=== PATIENT | male | born 2005 | race Caucasian/White ===

== ENCOUNTER 2025-02-02 09:54 | Emergency (ER) | payer BC, SELFPAY ==
--- NOTE | ~2025-02-02 | XR_ITS ---
EXAMINATION: XR HAND 1-2 VIEWS RIGHT, XR WRIST 1-2 VIEWS RIGHT HISTORY: dorsal tenderness laterally COMPARISON: There are no prior studies available for comparison. FINDINGS: Six views of the right hand and wrist are submitted. Osseous mineralization is normal. There is no fracture or dislocation. The joint spaces are preserved. The soft tissues are unremarkable. XR/XR wrist RT 2V IMPRESSION: Unremarkable examination of the right hand and wrist. Electronically signed by: Michael Nelson MD 02/02/2025 10:22 AM EDT
--- NOTE | ~2025-02-02 | XR_ITS ---
EXAMINATION: XR HAND 1-2 VIEWS RIGHT, XR WRIST 1-2 VIEWS RIGHT HISTORY: dorsal tenderness laterally COMPARISON: There are no prior studies available for comparison. FINDINGS: Six views of the right hand and wrist are submitted. Osseous mineralization is normal. There is no fracture or dislocation. The joint spaces are preserved. The soft tissues are unremarkable. XR/XR hand RT 2V IMPRESSION: Unremarkable examination of the right hand and wrist. Electronically signed by: Michael Nelson MD 02/02/2025 10:22 AM EDT
[2025-02-02 09:56] VITALS: BP 133/81; PULSE 84; RESP 16; TEMP 36.1; O2SAT 100; BMI 21.7
--- NOTE | 2025-02-02 09:56 | ED.GENADULT ---
HPI - General Adult General Chief complaint: Extremity Injury, Upper Stated complaint: quest r wrist dislocated hit door Time Seen by Provider: 02/02/25 10:53 Source: patient and old records reviewed Mode of arrival: ambulatory Limitations: no limitations History of Present Illness ED Provider: BLANE MARSHALL narrative: 19 yo male with no PMH and he is R hand dominant he slammed his R lateral hand on a stall wall last night - he then went to urgent care this AM had xrays they referred him to ED with ?dislocation. He notes he has severe pain from hand to elbow and cannot make a fist. No numbness reported. MD complaint: R hand injury Onset (ago): day(s) (1) Location: right and upper extremity Radiation: extremity Severity: severe Quality: aching Pain Consistency: constant Relieving factors: immobilization Exacerbating factors: movement Associated symptoms: denies other symptoms Treatments prior to arrival: none Related Data Previous Rx's ?Medication ?Instructions ?Recorded cyclobenzaprine 10 mg tablet 10 mg PO TID PRN muscle spasm #20 02/02/25 tabs ibuprofen 600 mg tablet 600 mg PO Q6H PRN pain #30 tabs 02/02/25 Allergies Allergy/AdvReac Type Severity Reaction Status Date / Time nut - unspecified Allergy Anaphylaxis Verified 02/02/25 09:57 peanut Allergy Anaphylaxis Verified 02/02/25 09:57 Review of Systems Review of Systems: Constitutional : No Fever, No Chills ENT/Mouth : No Ear Pain, No Hoarseness, No sore throat Eyes: No Eye Pain, No Swelling, No Redness, No Foreign Body Cardiovascular : No Chest Pain, No SOB Respiratory : No Cough, No Dyspnea Gastrointestinal : No Nausea, No Vomiting, No Diarrhea, No abdominal Pain Genitourinary : No Dysuria, No Hematuria Musculoskeletal : positive joint pain, No Myalgias, pos Joint Swelling Skin : No Skin lacerations, No rash Neuro : pos Weakness, No Numbness, No Loss of Consciousness, No Dizziness, No Headache All other systems reviewed and are negative [facility] Past Medical History Attestation statement: The following information was validated with the patient. Medical History No pertinent past medical history Social History Social History (Updated 02/02/25 @ 12:00 by Rose Aranda DO) Patient Tobacco Use Status: Never used Tobacco Physical Exam ED Vital Signs: Vital Signs - 24 hr 02/02/25 09:56 Temperature 97 F Pulse Rate 84 Respiratory Rate 16 Blood Pressure 133/81 Pulse Oximetry 100 Oxygen Delivery Method Room Air BMI result Body Mass Index 21.7 Appearance: Alert. Oriented X3. No acute distress. Eyes: Pupils equal, round and reactive to light. ENT: Pharynx normal. Neck: Normal inspection. Neck supple. CVS: Normal heart rate and rhythm. Pulses normal. Respiratory: No respiratory distress. Breath sounds normal. Abdomen: Soft and nontender. Skin: Skin warm and dry. Normal skin color. Normal skin turgor. Extremities: No lower extremity edema. R hand swelling on dorsum and palmar over carpal bone sensation, BCR in digits, sensation intact, hand warm, 2+ radial pulse, hand is held in a slightly flexed position. He has sig pain over the carpal tunnel area Neuro: Oriented X 3. No motor deficit. No sensory deficit. CN2-12 intact Course Course Course Narrative: This is a rapid medical exam performed by Everett Cardozo NP: Additional HPI, ROS, PE not included below will be deferred to primary provider. 02/02/25 09:57 Patient is a 19-year-old right hand dominant male presenting from with complaint of right hand and wrist pain and weakness after punching a bathroom stall last night. No obvious fx on xrays there. Plan: will need to repeat imaging Medications Administered Discontinued Medications Generic Name Dose Route Start Last Admin Trade Name Freq PRN Reason Stop Dose Admin Ibuprofen 600 mg 02/02/25 11:19 02/02/25 11:28 Ibuprofen 600 Mg Tablet PO 02/02/25 11:20 600 mg ONCE ONE Administration Prednisone 20 mg 02/02/25 11:19 02/02/25 11:28 Prednisone 20 Mg Tablet PO 02/02/25 11:20 20 mg ONCE ONE Administration Procedures Orthopedic Splinting/Casting Injury #1: Side: right Upper Extremity Injury Location: hand Upper Extremity Immobilizer: thumb spica Additional Comments: NV intact after Medical Decision Making Medical Decision Making MDM Narrative: 19 yo male with no PMH and he is R hand dominant who presents with concern for acute carpal tunnel injury due to swelling and hand strike - he has pulses and sensation intact. At this time xrays ordered, will consult orthopedics, start on pain control, one time dose of PO prednisone. Orthopedics concerned as well for scaphoid injury will hold further steroids and place in thumb spica with outpatient follow up Differential Diagnosis Differential Diagnoses: The differential diagnosis associated with the presentation includes sprain, strain, carpal tunnel acute, fracture Admission/Observation Consideration of admission/observation: Escalation of care including admission/observation considered ortho states can follow up as outpatient Consult Healthcare Provider Management of the patient was discussed with: Early Childhood Education Worker (Mainor MONTEZ ortho thumb spica and follow up next week ) Independent Interpretation I performed an independent interpretation of an: Plain X-Ray (no obvious trauma) Radiology Impression Discussion of test interpretation with radiology: I have reviewed the radiologist's reading. Prescription Management I considered prescription management with: Pain Medication and Other Discharge Plan Discharge Clinical Impression: Sprain and strain of wrist, Acute carpal tunnel syndrome Patient Disposition: Home, Self-Care Instructions: Wrist Sprain (ED) Additional Instructions: wear splint until released, keep elevated follow up with orthopedics return for cold, blue hand, numbness or any other concerns. Prescriptions: New cyclobenzaprine 10 mg tablet 10 mg PO TID PRN (Reason: muscle spasm) Qty: 20 0RF ibuprofen 600 mg tablet 600 mg PO Q6H PRN (Reason: pain) Qty: 30 0RF Referrals: [facility] [Provider Group] (call to schedule appointment next week) Stand Alone Forms: Work/School Release Print Language: Macedonian
--- NOTE | 2025-02-02 10:22 | PC.NURSE ---
Pt reporting he hit a wall with his right forarm last night at his baseball game, swelling noted to forearm and upper right wrist. Pt has +CMS, has not taken any medications at home. Pt denied any ice at this time. Awaiting xray and provider at this time. Call wade within reach
[2025-02-02] MEDS: Ibuprofen 600 MG TABLET PO (11:28)
[2025-02-02] MEDS: predniSONE 20 MG TABLET PO (11:28)
--- OUTSIDE RECORDS SUMMARY | 2025-02-02 11:52 | XMS_ITS | Encounter Summary ---
Author Organization [facility] Address [address] [place] [address] Care Team Providers Care Bean Weigher Name Role Phone Wilbur Daley MD Primary Care Provider [phone] Encounter Details Date Type Department Care Team (Late st Contact Info) Description 09/23/2019 Community Orders [facility] EpicCare Link [address] [place] [address] Wilbur Daley MD [address] [place] [address] [place] [phone] Chris-Schlatter's disease of both knees (Primary Dx) Social History Tobacco Use Types Packs/Day Years Used Date Smoking Tobacco: Never Smokeless Tobacco: Never Sex and Gender Information Value Date Recorded Sex Assigned at Male 02/21/2022 8:23 AM EDT Legal Sex Male 8:42 AM EDT Gender Identity Male 02/21/2022 8:23 AM EDT Sexual Orientation Straight 02/21/2022 8: 23 AM EDT documented as of this encounter Plan of Treatment Not on file documented as of this encounter Visit Diagnoses Diagnosis Coy-Schlatter's disease of both knees- Primary documented in this encounter Additional Health Concerns Infection Onset Date Last Indicated Resolved Time Multidrug resistant organisms MRSA 08/02/20172016 COVID-19 - Suspected infection 08/24/2020 08/24/2020 08/24/2020 8:37 PM EDT COVID-19 - Suspected infection 01/28/2021 01/29/2021 01/31/2021 4:22 PM EDT COVID-19 - Suspected infection 10/29/2021 10/29/2021 10/30/2021 6:43 AM EST R/O Respiratory Virus Infection 12/02/2021 12/03/2021 5:56 AM EST R/O Influenza 12/02/2021 12/02/2021 12/03/2021 5:5 6 AM EST COVID-19 - Suspected infection 12/02/2021 12/02/2021 12/03/2021 5:56 AM EST documented as of this encounter Care Teams Bean Weigher Relationship Specialty Start Date End Date Wilbur Daley MD [address] [place] [id number] PCP - General 05/21/17 documented as of this encounter
--- OUTSIDE RECORDS SUMMARY | 2025-02-02 11:52 | XMS_ITS | Encounter Summary ---
Author Organization [facility] Address [address] [place] [address] Care Team Providers Care Technician Telecommunication Systems Name Role Phone Wilbur Daley MD Primary Care Provider [phone] Encounter Details Date Type Department Care Team (Late st Contact Info) Description 12/02/2021 Community Orders [facility] EpicCare Link [address] [place] [address] Wilbur Daley MD [address] [facility] [address] [place] [phone] Fever and chills (Primary Dx) Social History Tobacco Use Types [...] on file documented as of this encounter Results * Due to [place] state law, this organization might not be sharing negative HIV tests. * COVID-19, Flu A/B & RSV RNA PCR, Symptomatic (12/02/2021 3:12 PM EST) SARS CoV 2 RNA, RT PCR Not Detected Not Detected ETHEL MELA ZAVALETA 12/03/2021 5:56 AM EST [facility] Comment:A Not Detected (Nega tive) test result is indicative of the absence of SARS-CoV-2 RNA at the level of LoD (Limit of Detection). A negative result does not rule out the possibility of COVID-19 and should not be used as the sole basis for treatment or patient management decisions. If COVID-19 is still suspected, based on exposure history together with other clinical findings, re-testing should be considered. Flu A/B RNA, RT PCR Not Detected Not Detected [employer] 12/03/2021 5:56 AM EST [facility] Comment:Negative results do not preclude infection and should not be used as the sole basis for diagnosis, treatment or other patient management decisions. Negative results must be combined with clinical observations, patient history, and/or epidemiological information. RSV RNA, RT PCR Not Detected Not Detected [employer] 12/03/2021 5:56 AM EST [facility] Comment:Negative results do not preclude infection and should not be used as the sole basis for diagnosis, treatment or other patient management decisions. Negative results must be combined with clinical observations, patient history, and/or epidemiological information. Saliva Mouth region structure / Unknown Non-Blood Collection / Unknown 12/02/2021 3:12 PM EST 12/02/2021 5:03 PM EST [facility] - 12/03/2021 5:56 AM EST These tests were developed, validated, and their performance characteristics determined by the Molecular Virology Laboratory at [facility] under CLIA [id number]. They have not been cleared or approved by the U.S. Food and Drug Administration (FDA). FDA Policy for Diagnostic Tests for Coronavirus Disease-2019 during the Public Health Emergency issued January 16, 2020, is followed. us Wilbur Daley MD LAB BODY FLUIDS AND STOOLS OR DERABLES Final Result [facility] [address] [place] [address], documented in this encounter Visit Diagnoses Diagnosis Fever and chills- Primary Fever, unspecified documented in this encounter Additional Health Concerns Infection Onset Date Last Indicated Resolved Time Multidrug resistant organisms MRSA 08/02/20172016 R/O Respiratory Virus Infection 12/02/2021 12/03/2021 5:56 AM EST R/O Influenza 12/02/2021 12/02/2021 12/03/2021 5:5 6 AM EST COVID-19 - Suspected infection 12/02/2021 12/02/2021 12/03/2021 5:56 AM EST documented as of this encounter Care Teams Technician Telecommunication Systems Relationship Specialty Start Date End Date Wilbur Daley MD [address] [place] [phone] PCP - General 05/21/17 documented as of this encounter
--- OUTSIDE RECORDS SUMMARY | 2025-02-02 11:52 | XMS_ITS | Clinical Summary ---
Author Organization [facility] Address [address] [place] [address] Care Team Providers Care Registered Nurse Nursery Name Role Phone Wilbur Daley MD Primary Care Provider [phone] Allergies Active Allergy Reactions Criticality Noted Date Comments Animal Dander Nasal congestion Garlic Rash 12/12/2017 Nut - Unspecified Anaphylaxis High Peanut Anaphylaxis High Medications albuterol (PROAIR HFA,VENTOLIN HFA) 90 mcg inhaler Inhale by mouth. Use with spacer. Active EPINEPHrine (EPIPEN) 0.3 mg/0.3 mL injection syringe SMARTSIG:IM As Directed 11/09/2021 Active EPINEPHrine (EPIPEN) 0.3 mg/0.3 mL injection syringe Inject 1 Syringe (0.3 mg total) into the outer thigh muscle as directed as needed for anaphylaxis. 1 each 09/27/2023 Active Active Problems Problem Noted Date Diagnosed Date Sprain of ulnar collateral ligament of right elb ow 06/22/2024 Closed fracture of tuft of distal phalanx of fin jose 02/24/2022 Infrequent urination 08/09/2015 Infrequent bowel movements 08/09/2015 Meatal stenosis 08/09/2015 Methicillin resistant Staphylococcus aureus infe ction 06/17/2011 Overview (07/21/2017): FIRST (+) MRSA CULTURE 06/13/11 IN WOUND SEE ANNOTATIONS FOR CLEARING PROTOCOL Umbilical hernia 09/09/2009 Inguinal hernia 09/09/2009 Asthma 09/09/2009 Family History Medical History Relation Name Comments Other Brother Family History of asthma Other Sister Family History of asthma Relation Name Status Comments Brother Sister Social History Tobacco Use Types Packs/Day Years Used Date Smoking Tobacco: Never Smokeless Tobacco: Never Sex and Gender Information Value Date Recorded Sex Assigned at Male 02/21/2022 8:23 AM EDT Legal Sex Male 8:42 AM EDT Gender Identity Male 02/21/2022 8:23 AM EDT Sexual Orientation Straight 02/21/2022 8: 23 AM EDT Last Filed Vital Signs Vital Sign Reading Time Taken Comments Blood Pressure 128/60 09/27/2023 1:45 AM EST Pulse 67 09/27/2023 1:45 AM EST Temperature 37.3 ??C (99.1 ??F) 09/26/2023 10:[address] Respiratory Rate 17 09/27/2023 1:45 AM EST Oxygen Saturation 96% 09/27/2023 1:45 AM EST Inhaled Oxygen Concentration - - Weight 77.1 kg (170 lb) 09/26/2023 10:19 PM EST Height 185.4 cm (6' 1 ) 03/14/2023 7:30 PM EDT Body Mass Index 22.43 03/14/2023 7:30 PM EDT Plan of Treatment Health Maintenance Due Date Last Done Comments HIV Screening 2004 Hepatitis C Screening 2004 1 Week [facility] 2004 1 Month [facility] 2004 2 Month [facility] 2004 4 Month [facility] 2004 6 Month [facility] 2004 9 Month [facility] 02/03/2005 MMR Vaccines (1 of 1 - Stand roseanne series) 2005 12 Month [facility] 05/16/2005 15 Month [facility] 08/02/2005 18 Month [facility] 10/31/2005 24 Month [facility] 04/29/2006 30 Month [facility] 09/02/2006 3 to 21 Year [facility] 2007 Well Child Check 2007 DTaP,Tdap,and Td Vaccines (2 - Td or Tdap) 02/26/2016 01/29/2016 Varicella Vaccines (1 of 2 - 13+ 2-dose series) 2017 Hepatitis B Vaccines (1 of 3 - 19+ 3-dose series) 2023 Pneumococcal Vaccine: Pediat michael (0-5 Years) and At-Risk Patients (6-50 Years) (1 of 2 - PCV) 2023 COVID-19 Vaccine (4 - 2023-2 5 season) 2024 05/19/2022, 06/30/2021, 06/09/2021 Depression Screening and Follow-Up 11/02/2024 Social Drivers of Health Mona ual Screening 11/02/2024 Influenza Vaccine (Season Ended) 2025 09/13/2021, 08/03/2020, 09/09/2019, Additional history exists RSV Vaccine (60+ years old a nd patients) (1 - 1-dose 75+ series) 2079 HPV Vaccines Completed 02/02/2018, 01/29/2017 Meningococcal Vaccine Completed 08/03/2020, 016 Additional Health Concerns Infection Onset Date Last Indicated Multidrug resistant organisms MRSA 08/02/2017 08/02/2017 Insurance [facility] HMO/POS [facility] HMO/POS [facility] Care Teams Registered Nurse Nursery Relationship Specialty Start Date End Date Wilbur Daley MD [address] [place] [phone] PCP - General 05/21/17
--- OUTSIDE RECORDS SUMMARY | 2025-02-02 11:52 | XMS_ITS | Encounter Summary ---
Author Organization [facility] Address [address] [place] [address] Care Team Providers Care Assistant Editor Name Role Phone Wilbur Daley MD Primary Care Provider [phone] Encounter Details Date Type Department Care Team (Late st Contact Info) Description 02/12/2022 Community Orders [facility] EpicCare Link [address] [place] [address] Wilbur Daley MD [address] [place] [address] Fracture, finger, multiple sites (Primary Dx) Social History Tobacco Use Types [...] as of this encounter Visit Diagnoses Diagnosis Fracture, finger, multiple sites- Primary Closed fracture of multiple sites of phalanx or phalanges of hand documented in this encounter Additional Health Concerns Infection Onset Date Last Indicated Resolved Time Multidrug resistant organisms MRSA 08/02/20172016 documented as of this encounter Care Teams Assistant Editor Relationship Specialty Start Date End Date Wilbur Daley MD [address] [address] PCP - General 05/21/17 documented as of this encounter
--- OUTSIDE RECORDS SUMMARY | 2025-02-02 11:52 | XMS_ITS | Encounter Summary ---
Author Organization [facility] Address [address] [place] [address] Care Team Providers Care Pellet Mill Operator Name Role Phone Wilbur Daley MD Primary Care Provider Encounter Details Date Type Department Care Team (Late st Contact Info) Description 05/06/2024 Community Orders [facility] EpicCare Link [address] [place] [address] Wilbur Daley MD [address] [place] [phone] Chronic right shoulder pain (Primary Dx) Social History Tobacco Use Types [...] as of this encounter Visit Diagnoses Diagnosis Chronic right shoulder pain- Primary Pain in joint, shoulder region documented in this encounter Additional Health Concerns Infection Onset Date Last Indicated Resolved Time Multidrug resistant organisms MRSA 08/02/20172016 documented as of this encounter Care Teams Pellet Mill Operator Relationship Specialty Start Date End Date Wilbur Daley MD [address] [place] [address] PCP - General 05/21/17 documented as of this encounter
--- OUTSIDE RECORDS SUMMARY | 2025-02-02 11:52 | XMS_ITS | Encounter Summary ---
Author Organization [facility] Address [address] [place] [address] Care Team Providers Care Dermatology Specialist Name Role Phone Wilbur Daley MD Primary Care Provider Encounter Details Date Type Department Care Team (Late st Contact Info) Description 01/28/2021 Community Orders [facility] EpicCare Link [address] [place] [address] Wilbur Daley MD [address] [facility] [address] [place] [phone] Exposure to SARS virus (Primary Dx) Social History Tobacco Use Types [...] of this encounter Results * Due to [place] state law, this organization might not be sharing negative HIV tests. * COVID-19 PCR, REPORTING DEVELOPER/OP/Saliva (01/31/2021 8:44 AM EDT) SARS CoV 2 RNA, RT PCR Not Detected Not Detected [employer] 01/31/2021 4:22 PM EDT [facility] Comment:A Not [...] other clinical findings, re-testing should be considered. Saliva Mouth region structure / Unknown Non-Blood Collection / Unknown 01/31/2021 8:44 AM EDT 01/31/2021 9:28 AM EDT Narrative [facility] - 01/31/2021 4:22 PM EDT These tests were developed, validated, and their performance characteristics determined by the Molecular Virology Laboratory at [facility] under CLIA [id number]. They have not been cleared or approved by the U.S. Food and Drug Administration (FDA). FDA Policy for Diagnostic Tests for Coronavirus Disease-2019 during the Public Health Emergency issued January 16, 2020, is followed. Wilbur Daley MD LAB BODY FLUIDS AND STOOLS OR DERABLES Final Result [facility] [employer] [facility] [address] [place] [address], documented in this encounter Visit Diagnoses Diagnosis Exposure to SARS virus- Primary Exposure to SARS-associated coronavirus documented in this encounter Additional Health Concerns Infection Onset Date Last Indicated Resolved Time Multidrug resistant organisms MRSA 08/02/20172016 COVID-19 - Suspected infection 01/28/2021 01/29/2021 01/31/2021 4:22 PM EDT COVID-19 - Suspected infection 10/29/2021 10/29/2021 10/30/2021 6:43 AM EST R/O Respiratory Virus Infection 12/02/2021 12/03/2021 5:56 AM EST R/O Influenza 12/02/2021 12/02/2021 12/03/2021 5:5 6 AM EST COVID-19 - Suspected infection 12/02/2021 12/02/2021 12/03/2021 5:56 AM EST documented as of this encounter Care Teams Dermatology Specialist Relationship Specialty Start Date End Date Wilbur Daley MD [address] [place] [address] PCP - General 05/21/17 documented as of this encounter
--- OUTSIDE RECORDS SUMMARY | 2025-02-02 11:52 | XMS_ITS | Referral Summary ---
Author Organization [facility] Address [address] [place] [address] Care Team Providers Care Sales Representative Cash Registers Name Role Phone Wilbur Daley MD Primary Care Provider [phone] Allergies Active Allergy Reactions Criticality Noted Date [...] hernia 09/09/2009 Inguinal hernia 09/09/2009 Asthma 09/09/2009 Social History Tobacco Use Types Packs/Day Years [...] 03/14/2023 7:30 PM EDT Plan of Treatment Not on file Additional Health Concerns Infection Onset Date Last Indicated Multidrug resistant organisms MRSA 08/02/2017 08/02/2017 Insurance [facility] H[facility]/POS [facility]/POS [facility] Care Teams Sales Representative Cash Registers Relationship Specialty Start Date End Date Wilbur Daley MD [address] [place] [address] [place] [phone] PCP - General 05/21/17
--- OUTSIDE RECORDS SUMMARY | 2025-02-02 11:52 | XMS_ITS | Encounter Summary ---
Author Organization [facility] Address [address] [place] [address] Care Team Providers Care Head Of Sales And Marketing Name Role Phone Wilbur Daley MD Primary Care Provider [phone] Encounter Details Date Type Department Care Team (Late st Contact Info) Description 10/29/2021 Community Orders [facility] EpicCare Link [address] [place] [address] Wilbur Daley MD 299 [facility] [address] [place] [address] Close exposure to COVID-19 virus (Primary Dx) Social History Tobacco Use [...] of this encounter Results * Due to [place] state law, this organization might not be sharing negative HIV tests. * COVID-19 PCR (Symptomatic), POWER CHECKER/OP/Saliva (10/29/2021 10:29 AM EST) SARS CoV 2 RNA, RT PCR Not Detected Not Detected [facility] QUANT STUDIO 10/30/2021 6:43 AM EST [email or web address] Comment:A Not Detected (Nega [...] structure / Unknown Non-Blood Collection / Unknown 10/29/2021 10:29 AM EST 10/29/2021 12:21 PM EST [facility]ative [facility] - 10/30/2021 6:43 AM EST These tests were developed, validated, and their performance characteristics determined by the Molecular Virology Laboratory at [facility] under CLIA [id number]. They have not been cleared or approved by the U.S. Food and Drug Administration (FDA). FDA Policy for Diagnostic Tests for Coronavirus Disease-2019 during the Public Health Emergency issued January 16, 2020, is followed. Wilbur Daley MD LAB BODY FLUIDS AND STOOLS OR DERABLES Final Result [facility] [address] [place] [address], documented in this encounter Visit Diagnoses Diagnosis Close exposure to COVID-19 virus- Primary documented in this encounter Additional Health Concerns Infection Onset Date Last Indicated Resolved Time Multidrug resistant organisms MRSA 08/02/20172016 COVID-19 - Suspected infection 10/29/2021 10/29/2021 10/30/2021 6:43 AM EST R/O Respiratory Virus Infection 12/02/2021 12/03/2021 5:56 AM EST R/O Influenza 12/02/2021 12/02/2021 12/03/2021 5:5 6 AM EST COVID-19 - Suspected infection 12/02/2021 12/02/2021 12/03/2021 5:56 AM EST documented as of this encounter Care Teams Head Of Sales And Marketing Relationship Specialty Start Date End Date Wilbur Daley MD [address] [place], [place] [id number] PCP - General 05/21/17 documented as of this encounter
--- OUTSIDE RECORDS SUMMARY | 2025-02-02 11:52 | XMS_ITS | Encounter Summary ---
Author Organization [facility] Address [address] [place] [address] Care Team Providers Care Interstate Planner Name Role Phone Wilbur Daley MD Primary Care Provider [phone] Encounter Details Date Type Department Care Team (Late st Contact Info) Description 08/24/2020 Orders Only [facility] [address] [place] [address] Wilbur Daley MD 299 [facility] [address] [place] [address] Exposure to SARS-associated coronavirus (Primary Dx) Social History Tobacco Use Types [...] of this encounter Results * Due to [place] state law, this organization might not be sharing negative HIV tests. * COVID-19 PCR, SIX PACK PACKER/OP/Saliva (08/24/2020 11:38 AM EDT) SARS CoV 2 RNA, RT PCR Not Detected Not Detected 08/24/2020 8:37 PM EDT [facility] Comment:A Not Detected (Nega tive) test result [...] structure / Unknown Non-Blood Collection / Unknown 08/24/2020 11:38 AM EDT 08/24/2020 12:38 PM EDT Narrative [facility] - 08/24/2020 8:37 PM EDT These tests were developed, validated, and their performance characteristics determined by the Molecular Virology Laboratory at [facility] under CLIA [id number]. They have not been cleared or approved by the U.S. Food and Drug Administration (FDA). FDA Policy for Diagnostic Tests for Coronavirus Disease-2019 during the Public Health Emergency issued January 16, 2020, is followed. us Wilbur Daley MD LAB BODY FLUIDS AND STOOLS OR DERABLES Final Result [facility] [address] [place] [address], documented in this encounter Visit Diagnoses Diagnosis Exposure to SARS-associated coronavirus- Primary documented in this encounter Additional Health [...] documented as of this encounter Care Teams Interstate Planner Relationship Specialty Start Date End Date Wilbur Daley MD [address] [place] [address] PCP - General 05/21/17 documented as of this encounter
--- OUTSIDE RECORDS SUMMARY | 2025-02-02 11:52 | XMS_ITS | Clinical Summary ---
Author Organization [facility] Address [address] [place] [address] Care Team Providers Care Bran Mixer Name Role Phone Juan Luis Daley MD Primary Care Provider [phone] Allergies Active Allergy Reactions Criticality Noted Date Comments Nuts 07/31/2013 Medications Fluticasone Propionate HFA (FLOVENT HFA) 110 MCG/ACT Aerosol None Entered Active Active Problems No known active problems Immunizations Name Administration Dates Next Due COVID-19, mRNA (Pfizer Pre F all 2022) Monovalent, 30 mcg/0.3 ml 06/30/2021,06/09/2021 Covid-19, mRNA (Pfizer Pre F all 2022) Monovalent, 30 mcg/0.3 ml ade-sucrose (12+) 05/19/2022 HPV9 (Gardasil 9) 02/02/2018,01/29/2017 Hep A (pedi) 02/02/2018,01/29/2017 Influenza,injectable,quad,Prsrv Fr 09/13,08/03/2020,09/09/2019,08/26,12/07/2017,09/13/2015 Meningococcal ACWY (Menactra) 08/03/2020, 016 Tdap 01/29/2016 Social History Tobacco Use Types Packs/Day Years Used Date Smoking Tobacco: Never Assessed Intimate Partner Violence Answer Date R ecorded Fear of Current or Ex-Partner Not on file Emotionally Abused Not on file 06/23/2023 Physically Abused Not on file 06/23/2023 Sexually Abused Not on file 06/23/2023 Feel Safe at Home Not on file 06/23/2023 Sex and Gender Information Value Date Recorded Sex Assigned at Not on file Legal Sex Male 8:42 PM EDT Gender Identity Not on file Sexual Orientation Not on file Last Filed Vital Signs Vital Sign Reading Time Taken Comments Blood Pressure 108/61 07/31/2013 3:23 PM EDT Pulse 78 02/11/2022 3:45 PM EDT Temperature 36.4 ??C (97.6 ??F) 02/11/2022 3:45 PM ED T Respiratory Rate 20 02/11/2022 3:45 PM EDT Oxygen Saturation 98% 02/11/2022 3:45 PM EDT Inhaled Oxygen Concentration - - Weight 72.2 kg (159 lb 3.2 oz) 02/11/2022 3:45 P M EDT Height 137.2 cm (4' 6 ) 07/31/2013 3:23 PM EDT Body Mass Index - - Plan of Treatment Health Maintenance Due Date Last Done Comments Hepatitis C Screening 2004 MMR (1 of 1 - Standard series) 2005 Varicella (1 of 2 - 13+ 2-dose series) 2017 Hep B (1 of 3 - 19+ 3-dose series) 2023 COVID-19 Vaccine ( season) 2024 05/19/2022, 06/30/2021, 06/09/2021 Influenza (#1) 2024 09/13/2021, 1012/2019, 09/09/2019, Additional history exists DTaP/Tdap/Td (2 - Td or Tdap) 01/28/2026 01/29/2016 Zoster (Shingrix) (1 of 2) 2054 HPV Vaccine Completed 02/02/2018, 01/29/2017 Hep A Completed 02/02/2018, 01/29/2017 Meningococcal ACWY Completed 08/03/2020, 01/29/2016 Hib Aged Out No longer eligi ble based on patient's age to complete this topic Pneumococcal Aged Out No longer eligi ble based on patient's age to complete this topic Polio (IPV/OPV) Aged Out No longer el igible based on patient's age to complete this topic Insurance MEDICAID [facility] FEE FOR SERVICE HMO Care Teams Bran Mixer Relationship Specialty Start Date End Date Juan Luis Daley MD JUAN LUIS DALEY, [address] [address] PCP - General Pediatrics 02/11/22
--- NOTE | 2025-02-02 12:02 | PC.NURSE ---
MD and ortho at bedside, awaiting dispo plan at this time/ decision on splitting options
[2025-02-02 12:26] VITALS: BP 133/81; PULSE 84; RESP 16; TEMP 36.1; O2SAT 100
== END 2025-02-02 12:26 | disposition home or self-care (01) ==
PROVIDERS: Emergency Provider Emergency Medicine
DX: S63.501A Unspecified sprain of right wrist, initial encounter (principal); S66.911A Strain of unspecified muscle, fascia and tendon at wrist and hand level, right hand, initial encounter; W22.09XA Striking against other stationary object, initial encounter; G56.01 Carpal tunnel syndrome, right upper limb; M79.641 Pain in right hand; Y93.89 Activity, other specified; Y92.89 Other specified places as the place of occurrence of the external cause; Y99.9 Unspecified external cause status
CPT/HCPCS: 29125; 73100; 73120; 99283; 99284

== ENCOUNTER → 2025-02-02 10:03 | Outpatient (BNV) | payer BC, SELFPAY | PROVIDERS: Emergency Provider Emergency Medicine; Visit Provider Radiology Diagnostic Radiology | DX: M25.531 Pain in right wrist (principal); M79.641 Pain in right hand | CPT/HCPCS: 73100; 73120 ==

== ENCOUNTER 2025-02-14 07:56 | Outpatient (AMB) | payer BC, SELFPAY ==
--- NOTE | 2025-02-14 08:00 | A.OFFVIS_ITS ---
Vital Signs 02/14/25 08:04 Height 6 ft 1 in Weight 170 lb BMI 22.4 Handedness Right Intake Visit Reasons: ED f/u-Rt wrist sprain and strain of wrist Intake Note: Neil is a 19 year old right hand dominant male who presents today for a new patient visit for an emergency department follow up for his right wrist injury, DOI: 02/01/25. Per ED note patient states he slammed the lateral side of his right hand into a wall. [facility] ED placed patient into a splint. Patient reports his entire right hand feels as if it is asleep at all times. Expresses constant throbbing pain. Tylenol or ibuprofen does not offer adequate relief. Allergies nut - unspecified Allergy (Verified 02/14/25 08:04) Anaphylaxis peanut Allergy (Verified 02/14/25 08:04) Anaphylaxis HPI HPI ED f/u-Rt wrist sprain and strain of wrist: Details: Neil is a 19 year old right hand dominant male who presents today for a new patient visit for an emergency department follow up for his right wrist injury, DOI: 02/01/25. Per ED note patient states he slammed the lateral side of his right hand into a wall. [facility] ED placed patient into a splint. Patient reports his entire right hand feels as if it is asleep at all times. Expresses constant throbbing pain. Tylenol or ibuprofen does not offer adequate relief. Patient reports he is still experiencing intermittent ?sleepiness? in the right hand. [facility] Medical History No pertinent past medical history Social History (Updated 02/14/25 @ 08:05 by CLARA Pressley) Alcohol intake: current Alcohol intake frequency: a few times a month Patient Tobacco Use Status: Never used Tobacco Substance Use Type: Marijuana Current occupational status: student Current occupation: sports - baseball Review of Systems Const All systems reviewed & are unremarkable except as noted in HPI and below Physical Exam Vital Signs: BMI result Body Mass Index 22.4 Extrem Other: Patient is alert, oriented, and in no acute distress. Neuro: Normal sensation of the tips of all digits of the right hand at this time Vascular: Cap refill brisk Pain: No tenderness to palpation of anatomical snuffbox of right wrist today [id number] tenderness to palpation of the scaphoid tubercle of the right wrist Mild tenderness to palpation about the dorsal and ulnar aspect of the right hand just distal to the ulnar styloid Some discomfort in this area with range of motion ROM: Patient was able to make a closed fist and extend all digits of the right hand fully Skin: No lacerations or abrasions. General: No ecchymosis, erythema, or evidence of infection. Psych: Appears grossly normal Affect normal Attitude cooperative Results Reviewed Results Reviewed: X-rays obtained in the office today and independently reviewed by me, Aristides Hayward PA-C, demonstrate no fracture or acute bony abnormality of the right hand or wrist. Assessment & Plan Assessment & Plan (1) Sprain and strain of wrist: Code(s): S63.509A - Unspecified sprain of unspecified wrist, initial encounter; S66.919A - Strain of unspecified muscle, fascia and tendon at wrist and hand level, unspecified hand, initial encounter Category: Medical Plan 1. Right wrist contusion with tenderness to scaphoid tubercle Date of injury 02/01/2025 At this time, due to patient's symptoms concerning for potential occult scaphoid fracture, patient was placed into a Velcro thumb spica splint to be worn like a cast except for bathing until follow-up Patient was also advised that if numbness and tingling continue at next visit, we will likely order an EMG and nerve conduction study to rule out carpal tunnel syndrome Patient is educated on proper splint care and precautions 2 lb weight limit until follow-up No baseball Follow-up in 2 weeks Orders: Orders XR wrist RT w scaphoid Today M79.641 - Pain in right hand Coding Level of Care Code New Pt Level 3 (81514) Diagnoses Sprain and strain of wrist S63.509A; S66.919A
--- OUTSIDE RECORDS SUMMARY | 2025-02-14 08:00 | XMS_ITS | Clinical Summary ---
Author Organization [facility] Address [address] [place] [address] Care Team Providers Care Tree Chipper Name Role Phone Juan Luis Eduardo MD Primary Care Provider [phone] Allergies Active Allergy Reactions Criticality Noted Date [...] age to complete this topic Insurance MEDICAID [facility] FEE FOR SERVICE HMO Care Teams Tree Chipper Relationship Specialty Start Date End Date Juan Luis Eduardo MD JUAN LUIS EDUARDO, [address] [address] PCP - General Pediatrics 02/11/22
--- OUTSIDE RECORDS SUMMARY | 2025-02-14 08:00 | XMS_ITS | Referral Summary ---
Author Organization [facility] Address [address] [place] [address] Care Team Providers Care Set Up Operator Tool Name Role Phone Wilbur Daley MD Primary Care Provider [phone] Allergies Active Allergy Reactions Criticality Noted Date [...] Multidrug resistant organisms MRSA 08/02/2017 08/02/2017 Insurance [facility] HMO/POS [facility] H[facility]/POS [facility] Care Teams Set Up Operator Tool Relationship Specialty Start Date End Date Wilbur Daley MD [address] [place] [address] [place] [address] PCP - General 05/21/17
--- OUTSIDE RECORDS SUMMARY | 2025-02-14 08:00 | XMS_ITS | Encounter Summary ---
Author Organization [facility] Address [address] [place] [address] Care Team Providers Care Substance Abuse Rn Name Role Phone Wilbur Daley MD Primary Care Provider [phone] Encounter Details Date Type Department Care Team (Late st Contact Info) Description 10/29/2021 Community Orders [facility] EpicCare Link [address] [place] [address] Wilbur Daley MD 299 [facility] [address] [place] [phone] Close exposure to COVID-19 virus (Primary Dx) [...] of this encounter Results * Due to [place] state law, this organization might not be sharing negative HIV tests. * COVID-19 PCR (Symptomatic), AVIONICS MANAGER/OP/Saliva (10/29/2021 10:29 AM EST) SARS CoV 2 RNA, RT PCR Not Detected Not Detected [facility] QUANT STUDIO 10/30/2021 6:43 AM EST [facility] Comment:A Not Detected (Nega [...] AM EST 10/29/2021 12:21 PM EST Narrative [facility] - 10/30/2021 6:43 AM EST These tests were developed, validated, and their performance characteristics determined by the Molecular Virology Laboratory at [facility] under CLIA [id number]. They have not been cleared or approved by the U.S. Food and Drug Administration (FDA). FDA Policy for Diagnostic Tests for Coronavirus Disease-2019 during the Public Health Emergency issued January 16, 2020, is followed. Wilbur Daley MD LAB BODY FLUIDS AND STOOLS OR DERABLES Final Result [facility] [address] [place] [address], documented in this encounter Visit Diagnoses Diagnosis [...] documented as of this encounter Care Teams Substance Abuse Rn Relationship Specialty Start Date End Date Wilbur Daley MD [address] [place], [place] [phone] PCP - General 05/21/17 documented as of this encounter
--- OUTSIDE RECORDS SUMMARY | 2025-02-14 08:00 | XMS_ITS | Clinical Summary ---
Author Organization [facility] Address [address] [place] [address] Care Team Providers Care Bookkeeping Service Sales Agent Name Role Phone Wilbur Daley MD Primary Care Provider [phone] Allergies Active Allergy Reactions Criticality Noted Date [...] 2004 Hepatitis C Screening 2004 1 Week [facility] 2004 1 Month [facility] 2004 2 Month [facility] 2004 4 Month [facility] 2004 6 Month [facility] 2004 9 Month [facility] 02/03/2005 MMR Vaccines (1 of 1 - Stand roseanne series) 2005 12 Month [facility] 05/16/2005 15 Month [facility] 08/02/2005 18 Month [facility] 10/31/2005 24 Month [facility] 04/29/2006 30 Month [facility] 09/02/2006 3 to 21 Year [facility] 2007 Well Child Check 2007 DTaP,Tdap,and Td [...] Multidrug resistant organisms MRSA 08/02/2017 08/02/2017 Insurance [facility] HMO/POS [facility] Care Teams Bookkeeping Service Sales Agent Relationship Specialty Start Date End Date Wilbur Daley MD [address] [place] [address] PCP - General 05/21/17
--- OUTSIDE RECORDS SUMMARY | 2025-02-14 08:00 | XMS_ITS | Encounter Summary ---
Author Organization [facility] Address [address] [place] [address] Care Team Providers Care Bowl Topper Name Role Phone Wilbur Daley MD Primary Care Provider [phone] Encounter Details Date Type Department Care Team (Late st Contact Info) Description 09/23/2019 Community Orders [facility] EpicCare Link [address] [place] [address] Wilbur aDley MD [address] [place] [address] [place] [address] Chris-Schlatter's disease of both knees (Primary Dx) [...] as of this encounter Visit Diagnoses Diagnosis Swengel-Schlatter's disease of both knees- Primary documented in [...] documented as of this encounter Care Teams Bowl Topper Relationship Specialty Start Date End Date Wilbur Daley MD [address] [place] [address] PCP - General 05/21/17 documented as of this encounter
--- OUTSIDE RECORDS SUMMARY | 2025-02-14 08:00 | XMS_ITS | Encounter Summary ---
Author Organization [facility] Address [address] [place] [address] Care Team Providers Care Radiologic Technician Name Role Phone Wilbur Daley MD Primary Care Provider Encounter Details Date Type Department Care Team (Late st Contact Info) Description 02/12/2022 Community Orders [facility] EpicCare Link [address] [place] [address] Wilbur Daley MD [address] [place] [address] Fracture, finger, multiple sites (Primary Dx) Social [...] documented as of this encounter Care Teams Radiologic Technician Relationship Specialty Start Date End Date Wilbur Daley MD [address] [address] PCP - General 05/21/17 documented as of this encounter
--- OUTSIDE RECORDS SUMMARY | 2025-02-14 08:00 | XMS_ITS | Encounter Summary ---
Author Organization [facility] Address [address] [place] [address] Care Team Providers Care Leadite Worker Name Role Phone Wilbur Daley MD Primary Care Provider [phone] Encounter Details Date Type Department Care Team (Late st Contact Info) Description 12/02/2021 Community Orders [facility] EpicCare Link [address] [place] [address] Wilbur Daley MD 299 [facility] [address] [place] [address] Fever and chills (Primary Dx) Social History [...] of this encounter Results * Due to [place] state law, this organization might not be sharing negative HIV tests. * COVID-19, Flu A/B & RSV RNA PCR, Symptomatic (12/02/2021 3:12 PM EST) SARS CoV 2 RNA, RT PCR Not Detected Not Detected ETHEL MELA ZAVALETA 12/03/2021 5:56 AM EST [facility] CL[facility]ICAL [facility]OLOGY LABORATORY Comment:A Not [...] RNA, RT PCR Not Detected Not Detected [facility] 12/03/2021 5:56 AM EST [facility] Comment:Negative results do not preclude infection and should not be used as the sole basis for diagnosis, treatment or other patient management decisions. Negative results must be combined with clinical observations, patient history, and/or epidemiological information. RSV RNA, RT PCR Not Detected Not Detected [employer] [facility] 12/03/2021 5:56 AM EST [facility] Comment:Negative results do not preclude infection and should not be used as the sole basis for diagnosis, treatment or other patient management decisions. Negative results must be combined with clinical observations, patient history, and/or epidemiological information. Saliva Mouth region structure / Unknown Non-Blood Collection / Unknown 12/02/2021 3:12 PM EST 12/02/2021 5:03 PM EST [facility] - 12/03/2021 5:56 AM EST These tests were developed, validated, and their performance characteristics determined by the Molecular Virology Laboratory at [facility] under CLIA [id number]. They have not been cleared or approved by the U.S. Food and Drug Administration (FDA). FDA Policy for Diagnostic Tests for Coronavirus Disease-2019 during the Public Health Emergency issued January 16, 2020, is followed. us Wilbur Daley MD LAB BODY FLUIDS AND STOOLS OR DERABLES Final Result [facility] [address] [place] [address], documented in this encounter Visit Diagnoses Diagnosis [...] documented as of this encounter Care Teams Leadite Worker Relationship Specialty Start Date End Date Wilbur Daley MD [address] [place] [address] PCP - General 05/21/17 documented as of this encounter
--- OUTSIDE RECORDS SUMMARY | 2025-02-14 08:00 | XMS_ITS | Encounter Summary ---
Author Organization [facility] Address [address] [place] [address] Care Team Providers Care Financing Analyst Name Role Phone Wilbur Daley MD Primary Care Provider Encounter Details Date Type Department Care Team (Late st Contact Info) Description 05/06/2024 Community Orders [facility] EpicCare Link [address] [place] [address] Wilbur Daley MD [address] [place] [address] Chronic right shoulder pain (Primary Dx) Social [...] documented as of this encounter Care Teams Financing Analyst Relationship Specialty Start Date End Date Wilbur Daley MD [address] [place] [address] PCP - General 05/21/17 documented as of this encounter
--- OUTSIDE RECORDS SUMMARY | 2025-02-14 08:00 | XMS_ITS | Encounter Summary ---
Author Organization [facility] Address [address] [place] [address] Care Team Providers Care Office Asst Name Role Phone Wilbur Daley MD Primary Care Provider [phone] Encounter Details Date Type Department Care Team (Late st Contact Info) Description 08/24/2020 Orders Only [facility] [address] [place] [address] Wilbur Daley MD [address] [facility] [employer] [address] [place] [address] Exposure to SARS-associated coronavirus (Primary Dx) Social [...] of this encounter Results * Due to [place] state law, this organization might not be sharing negative HIV tests. * COVID-19 PCR, ABLE BODIED TANKERMAN/OP/Saliva (08/24/2020 11:38 AM EDT) SARS CoV 2 RNA, RT PCR Not Detected Not Detected 08/24/2020 8:37 PM EDT [facility] Comment:A Not Detected [...] AM EDT 08/24/2020 12:38 PM EDT Narrative [facility] - 08/24/2020 8:37 PM EDT These tests were developed, validated, and their performance characteristics determined by the Molecular Virology Laboratory at [facility] under CLIA [id number]. They have not been cleared or approved by the U.S. Food and Drug Administration (FDA). FDA Policy for Diagnostic Tests for Coronavirus Disease-2019 during the Public Health Emergency issued January 16, 2020, is followed. us Wilbur Daley MD LAB BODY FLUIDS AND STOOLS OR DERABLES Final Result [facility] [address] [place] [address], documented in this encounter Visit Diagnoses Diagnosis [...] documented as of this encounter Care Teams Office Asst Relationship Specialty Start Date End Date Wilbur Daley MD [address] [place] [address] PCP - General 05/21/17 documented as of this encounter
--- OUTSIDE RECORDS SUMMARY | 2025-02-14 08:00 | XMS_ITS | Encounter Summary ---
Author Organization [facility] Address [address] [place] [address] Care Team Providers Care Passenger Rate Clerk Name Role Phone Wilbur Daley MD Primary Care Provider [phone] Encounter Details Date Type Department Care Team (Late st Contact Info) Description 01/28/2021 Community Orders [facility] EpicCare Link [address] [place] [address] Wilbur Daley MD 299 [facility] [address] [place] [phone] Exposure to SARS virus (Primary Dx) Social [...] of this encounter Results * Due to [place] state law, this organization might not be sharing negative HIV tests. * COVID-19 PCR, SNOW REMOVING SUPERVISOR/OP/Saliva (01/31/2021 8:44 AM EDT) SARS CoV 2 RNA, RT PCR Not Detected Not Detected BANG BANDA STUDIO 01/31/2021 4:22 PM EDT [facility] Comment:A Not [...] AM EDT 01/31/2021 9:28 AM EDT Narrative [facility] - 01/31/2021 4:22 PM EDT These tests were developed, validated, and their performance characteristics determined by the Molecular Virology Laboratory at [facility] under CLIA [id number]. They have not been cleared or approved by the U.S. Food and Drug Administration (FDA). FDA Policy for Diagnostic Tests for Coronavirus Disease-2019 during the Public Health Emergency issued January 16, 2020, is followed. Wilbur Daley MD LAB BODY FLUIDS AND STOOLS OR DERABLES Final Result [facility] [employer] CLINICAL PATHOLOGY LABORATORY [address] [place] [address], documented in this encounter Visit Diagnoses Diagnosis [...] documented as of this encounter Care Teams Passenger Rate Clerk Relationship Specialty Start Date End Date Wilbur Daley MD [address] [place] [address] PCP - General 05/21/17 documented as of this encounter
[2025-02-14 08:04] VITALS: BMI 22.4
== END 2025-02-14 09:23 | disposition home or self-care (01) ==
LOC: HO.HOS 07:57
DX: S63.501A Unspecified sprain of right wrist, initial encounter (principal); S66.911A Strain of unspecified muscle, fascia and tendon at wrist and hand level, right hand, initial encounter
CPT/HCPCS: 99203

== ENCOUNTER 2025-02-14 07:56 | Outpatient (REF) | payer BC, SELFPAY ==
--- NOTE | ~2025-02-14 | XR_ITS ---
CLINICAL HISTORY: M79.641 - Pain in right hand --- Additional Notes or Special Instructions: Out of s plint Radiographs of the right wrist, 4 views Comparison: CR/SR - XR HAND RT 2V - 02/02/25 10:13 EDT CR/SR - XR WRIST RT 2V - 02/02/25 10:09 EDT Findings: No fracture or dislocation. The joint spaces are preserved without osteophytosis. Bone mineralization is normal. Soft tissue swelling. Impression: No fracture. This document has been electronically signed by: Najma Montesinos MD on 02/15/2025 14:44:01
== END 2025-02-14 07:57 | disposition home or self-care (01) ==
LOC: HO.HOSX 07:56
DX: M79.641 Pain in right hand (principal)
CPT/HCPCS: 73110

== ENCOUNTER → 2025-02-14 08:12 | Outpatient (BNV) | payer BC, SELFPAY | PROVIDERS: Visit Provider Radiology Diagnostic Radiology | DX: M79.641 Pain in right hand (principal) | CPT/HCPCS: 73110 ==

== ENCOUNTER 2025-02-28 08:04 | Outpatient (REF) | payer BC, SELFPAY ==
--- NOTE | ~2025-02-28 | XR_ITS ---
EXAMINATION: XR WRIST NAVICULAR RIGHT HISTORY: M79.641 - Pain in right hand COMPARISON: Comparison is made with the prior examination dated 02/14/2025. FINDINGS: Four views of the right wrist including a scaphoid view are submitted. Osseous mineralization is normal. There is no fracture or dislocation. The joint spaces are preserved. The soft tissues are unremarkable. XR/XR wrist RT w scaphoid IMPRESSION: Unremarkable examination of the right wrist. Electronically signed by: Michael Nelson MD 03/02/2025 09:22 AM EDT
--- OUTSIDE RECORDS SUMMARY | 2025-02-28 08:12 | XMS_ITS | Clinical Summary ---
Author Organization [facility] Address [address] [place] [address] Care Team Providers Care Detailer Furniture Name Role Phone Juan Luis Eduardo MD Primary Care Provider [phone] Allergies Active Allergy Reactions Criticality Noted Date [...] age to complete this topic Insurance MEDICAID [facility] FEE FOR SERVICE HMO Care Teams Detailer Furniture Relationship Specialty Start Date End Date Juan Luis Eduardo MD JUAN LUIS EDUARDO, [address] [address] PCP - General Pediatrics 02/11/22
--- OUTSIDE RECORDS SUMMARY | 2025-02-28 08:12 | XMS_ITS | Encounter Summary ---
Author Organization [facility] Address [address] [place] [address] Care Team Providers Care Canvas Goods Supervisor Name Role Phone Denny Camacho MD Primary Care Provider [phone] Encounter Details Date Type Department Care Team (Late st Contact Info) Description 05/06/2024 Community Orders [facility] EpicCare Link [address] [place] [address] Wilbur Daley MD [address] [place] [address] [place] [address] Chronic right shoulder pain (Primary Dx) Social [...] documented as of this encounter Care Teams Canvas Goods Supervisor Relationship Specialty Start Date End Date Denny Camacho MD [address] [place] [address] PCP - General Family Medicine 02/14/25 documented as of this encounter
--- OUTSIDE RECORDS SUMMARY | 2025-02-28 08:13 | XMS_ITS | Encounter Summary ---
Author Organization [facility] Address [address] [place] [address] Care Team Providers Care Data Designer Name Role Phone Denny Camacho MD Primary Care Provider [phone] Encounter Details Date Type Department Care Team (Late st Contact Info) Description 02/12/2022 Community Orders [facility] EpicCare Link [address] [place] [address] Wilbur Daley MD [address] [place] [address] [place] [address] Fracture, finger, multiple sites (Primary Dx) Social [...] documented as of this encounter Care Teams Data Designer Relationship Specialty Start Date End Date Denny Camacho MD [address] [place] [address] PCP - General Family Medicine 02/14/25 documented as of this encounter
--- OUTSIDE RECORDS SUMMARY | 2025-02-28 08:13 | XMS_ITS | Encounter Summary ---
Author Organization [facility] Address [address] [place] [address] Care Team Providers Care Plastic Fixture Builder Name Role Phone Denny Camacho MD Primary Care Provider [phone] Encounter Details Date Type Department Care Team (Late st Contact Info) Description 01/28/2021 Community Orders [facility] EpicCare Link [address] [place] [address] Wilbur Daley MD [address] [place] [address] [place] [address] Exposure to SARS virus (Primary Dx) Social [...] of this encounter Results * Due to [place] state law, this organization might not be sharing negative HIV tests. * COVID-19 PCR, TIRE WORKER/OP/Saliva (01/31/2021 8:44 AM EDT) SARS CoV 2 RNA, RT PCR Not Detected Not Detected BANG ZAVALETA 01/31/2021 4:22 PM EDT [facility] Comment:A [...] AM EDT 01/31/2021 9:28 AM EDT Narrative [facility] - 01/31/2021 4:22 PM EDT These tests were developed, validated, and their performance characteristics determined by the Molecular Virology Laboratory at [facility] under CLIA [id number]. They have not been cleared or approved by the U.S. Food and Drug Administration (FDA). FDA Policy for Diagnostic Tests for Coronavirus Disease-2019 during the Public Health Emergency issued January 16, 2020, is followed. Wilbur Daley MD LAB BODY FLUIDS AND STOOLS OR DERABLES Final Result [facility] [address] [place] [address], documented in this encounter Visit Diagnoses Diagnosis [...] documented as of this encounter Care Teams Plastic Fixture Builder Relationship Specialty Start Date End Date Denny Camacho MD [address] [place] [address] PCP - General Family Medicine 02/14/25 documented as of this encounter
--- OUTSIDE RECORDS SUMMARY | 2025-02-28 08:13 | XMS_ITS | Encounter Summary ---
Author Organization [facility] Address [address] [place] [address] Care Team Providers Care Tire Vulcanizer Name Role Phone Denny Camacho MD Primary Care Provider [phone] Encounter Details Date Type Department Care Team (Late st Contact Info) Description 08/24/2020 Orders Only [facility] [address] [place] [address] Wilbur Daley MD 299 [facility] [address] [place] [address] Exposure to SARS-associated coronavirus (Primary Dx) Social [...] of this encounter Results * Due to [place] state law, this organization might not be sharing negative HIV tests. * COVID-19 PCR, PYTHON WEB DEVELOPER/OP/Saliva (08/24/2020 11:38 AM EDT) SARS CoV 2 RNA, RT PCR Not Detected Not Detected 08/24/2020 8:37 PM EDT [facility] Comment:A Not Detected [...] AM EDT 08/24/2020 12:38 PM EDT Narrative [facility] - 08/24/2020 8:37 PM EDT These tests were developed, validated, and their performance characteristics determined by the Molecular Virology Laboratory at [facility] under CLIA [id number]. They have not been cleared or approved by the U.S. Food and Drug Administration (FDA). FDA Policy for Diagnostic Tests for Coronavirus Disease-2019 during the Public Health Emergency issued January 16, 2020, is followed. us Wilbur Daley MD LAB BODY FLUIDS AND STOOLS OR DERABLES Final Result [facility] [address] [place] [address], documented in this encounter Visit Diagnoses Diagnosis [...] documented as of this encounter Care Teams Tire Vulcanizer Relationship Specialty Start Date End Date Denny Camacho MD [address] [place] [address] PCP - General Family Medicine 02/14/25 documented as of this encounter
--- OUTSIDE RECORDS SUMMARY | 2025-02-28 08:13 | XMS_ITS | Encounter Summary ---
Author Organization [facility] Address [address] [place] [address] Care Team Providers Care Cleaning Manager Name Role Phone Denny Camacho MD Primary Care Provider [phone] Encounter Details Date Type Department Care Team (Late st Contact Info) Description 12/02/2021 Community Orders [facility] EpicCare Link [address] [place] [address] Wilbur Daley MD [address] [place] [address] [place] [address] Fever and chills (Primary Dx) Social History [...] of this encounter Results * Due to [place] state law, this organization might not be sharing negative HIV tests. * COVID-19, Flu A/B & RSV RNA PCR, Symptomatic (12/02/2021 3:12 PM EST) SARS CoV 2 RNA, RT PCR Not Detected Not Detected GALINDO ZAVALETA 12/03/2021 5:56 AM EST [facility] Comment:A Not [...] RNA, RT PCR Not Detected Not Detected [facility] 12/03/2021 5:56 AM EST [facility] Comment:Negative results do not preclude infection and should not be used as the sole basis for diagnosis, treatment or other patient management decisions. Negative results must be combined with clinical observations, patient history, and/or epidemiological information. RSV RNA, RT PCR Not Detected Not Detected [facility] 12/03/2021 5:56 AM EST [facility] Comment:Negative results do not preclude infection and should not be used as the sole basis for diagnosis, treatment or other patient management decisions. Negative results must be combined with clinical observations, patient history, and/or epidemiological information. Saliva Mouth region structure / Unknown Non-Blood Collection / Unknown 12/02/2021 3:12 PM EST 12/02/2021 5:03 PM EST [facility] - 12/03/2021 5:56 AM EST These tests were developed, validated, and their performance characteristics determined by the Molecular Virology Laboratory at [facility] under CLIA [id number]. They have not been cleared or approved by the U.S. Food and Drug Administration (FDA). FDA Policy for Diagnostic Tests for Coronavirus Disease-2019 during the Public Health Emergency issued January 16, 2020, is followed. us Wilbur Daley MD LAB BODY FLUIDS AND STOOLS OR DERABLES Final Result [facility] [address] [place] [address], documented in this encounter Visit Diagnoses Diagnosis [...] documented as of this encounter Care Teams Cleaning Manager Relationship Specialty Start Date End Date Denny Camacho MD [address] [place] [address] PCP - General Family Medicine 02/14/25 documented as of this encounter
--- OUTSIDE RECORDS SUMMARY | 2025-02-28 08:13 | XMS_ITS | Encounter Summary ---
Author Organization [facility] Address [address] [place] [address] Care Team Providers Care Stamp Redemption Clerk Name Role Phone Denny Camacho MD Primary Care Provider [phone] Encounter Details Date Type Department Care Team (Late st Contact Info) Description 09/23/2019 Community Orders [facility] EpicCare Link [address] [place] [address] Wilbur Daley MD [address] [place] [address] [place] [address] Chris-Schlatter's disease of both knees (Primary Dx) [...] as of this encounter Visit Diagnoses Diagnosis Lowell-Schlatter's disease of both knees- Primary documented in [...] documented as of this encounter Care Teams Stamp Redemption Clerk Relationship Specialty Start Date End Date Denny Camacho MD [address] [place] [address] PCP - General Family Medicine 02/14/25 documented as of this encounter
--- OUTSIDE RECORDS SUMMARY | 2025-02-28 08:13 | XMS_ITS | Encounter Summary ---
Author Organization [facility] Address [address] [place] [address] Care Team Providers Care Associate Genetics Professor Name Role Phone Denny Camacho MD Primary Care Provider [phone] Encounter Details Date Type Department Care Team (Late st Contact Info) Description 10/29/2021 Community Orders [facility] EpicCare Link [address] [place] [address] Wilbur Daley MD 299 [facility] [address] [place] [address] Close exposure to COVID-19 virus (Primary Dx) [...] of this encounter Results * Due to [place] state law, this organization might not be sharing negative HIV tests. * COVID-19 PCR (Symptomatic), AUGER SUPERVISOR/OP/Saliva (10/29/2021 10:29 AM EST) SARS CoV 2 RNA, RT PCR Not Detected Not Detected THERMOFIS HER QUANT STUDIO 10/30/2021 6:43 AM EST [facility] Comment:A Not [...] AM EST 10/29/2021 12:21 PM EST Narrative [facility] - 10/30/2021 6:43 AM EST These tests were developed, validated, and their performance characteristics determined by the Molecular Virology Laboratory at [facility] under CLIA [id number]. They have not been cleared or approved by the U.S. Food and Drug Administration (FDA). FDA Policy for Diagnostic Tests for Coronavirus Disease-2019 during the Public Health Emergency issued January 16, 2020, is followed. Wilbur Daley MD LAB BODY FLUIDS AND STOOLS OR DERABLES Final Result [facility] [address] [place] [id number], documented in this encounter Visit Diagnoses Diagnosis [...] documented as of this encounter Care Teams Associate Genetics Professor Relationship Specialty Start Date End Date Denny Camacho MD [address] [place] [address] PCP - General Family Medicine 02/14/25 documented as of this encounter
--- OUTSIDE RECORDS SUMMARY | 2025-02-28 08:13 | XMS_ITS | Referral Summary ---
Author Organization [facility] Address [address] [place] [address] Care Team Providers Care End Maker Name Role Phone Denny Camacho MD Primary Care Provider [phone] Allergies Active Allergy Reactions Criticality Noted Date [...] Multidrug resistant organisms MRSA 08/02/2017 08/02/2017 Insurance [facility] HMO/POS [place] [facility] HMO/[place] [address] [address] [address] [place] [address] Care Teams End Maker Relationship Specialty Start Date End Date Denny Camacho MD [address] [place] [address] PCP - General Family Medicine 02/14/25
--- OUTSIDE RECORDS SUMMARY | 2025-02-28 08:13 | XMS_ITS | Clinical Summary ---
Author Organization [facility] Address [address] [place] [address] Care Team Providers Care Strip Roller Name Role Phone Denny Camacho MD Primary Care Provider [phone] Allergies Active Allergy Reactions Criticality Noted Date [...] 2004 Hepatitis C Screening [address] [facility] [address] [facility] [address] [facility] [address] [facility] [address] [facility] [address] [facility] 02/03/2005 MMR Vaccines (1 of 1 - Stand roseanne series) [address] [facility] 05/16/[address] [facility] 08/02/[address] [facility] 10/31/[address] [facility] 04/29/[address] [facility] 09/02/[address] [facility] 2007 Well Child Check 2007 DTaP,Tdap,and [...] Multidrug resistant organisms MRSA 08/02/2017 08/02/2017 Insurance [facility] Care Teams Strip Roller Relationship Specialty Start Date End Date Denny Camacho MD [address] [place] [address] PCP - General Family Medicine 02/14/25
== END 2025-02-28 08:05 | disposition home or self-care (01) ==
LOC: HO.HOSX 08:04
DX: M79.641 Pain in right hand (principal)
CPT/HCPCS: 73110

== ENCOUNTER 2025-02-28 08:45 | Outpatient (AMB) | payer BC, MEDICAID, SELFPAY ==
--- NOTE | 2025-02-28 08:52 | MHC.OFFVIS ---
Vital Signs 02/28/25 08:53 Height 6 ft 1 in Weight 170 lb BMI 22.4 Intake Visit Reasons: OV- right wrist injury, DOI: 02/01/25 Intake Note: Neil is a 19 year old right hand dominant male who presents today for a follow up for his right wrist contusion with tenderness to scaphoid tubercle, DOI: 02/01/25. At his last visit on 02/14/25 patient was placed into a Velcro thumb spica splint to be worn like a cast, placed on a 2 pound weight restriction and no baseball untill follow up. Patient reports that he is having some mild pain when he shakes his wrist out . Denies numbness and tingling. He is looking to have his restrictions lifted. Allergies nut - unspecified Allergy (Verified 02/14/25 08:04) Anaphylaxis peanut Allergy (Verified 02/14/25 08:04) Anaphylaxis HPI HPI OV- right wrist injury, DOI: 02/01/25: Details: Neil is a 19 year old right hand dominant male who presents today for a follow up for his right wrist contusion with tenderness to scaphoid tubercle, DOI: 02/01/25. At his last visit on 02/14/25 patient was placed into a Velcro thumb spica splint to be worn like a cast, placed on a 2 pound weight restriction and no baseball untill follow up. Patient reports that he is having some mild pain when he shakes his wrist out . Denies numbness and tingling. He is looking to have his restrictions lifted. [facility] Medical History No pertinent past medical history Social History (Updated 02/14/25 @ 08:05 by CLARA Pressley) Alcohol intake: current Alcohol intake frequency: a few times a month Patient Tobacco Use Status: Never used Tobacco Substance Use Type: Marijuana Current occupational status: student Current occupation: sports - baseball Review of Systems Const All systems reviewed & are unremarkable except as noted in HPI and below Physical Exam Vital Signs: BMI result Body Mass Index 22.4 Extrem Other: Patient is alert, oriented, and in no acute distress. Neuro: Normal sensation of the tips of all digits of the right hand at this time Vascular: Cap refill brisk Pain: No tenderness to palpation of anatomical snuffbox of right wrist today No further tenderness to palpation of the scaphoid tubercle of the right wrist No tenderness to palpation about the dorsal and ulnar aspect of the right hand just distal to the ulnar styloid No discomfort in this area with range of motion ROM: Patient was able to make a closed fist and extend all digits of the right hand fully Skin: No lacerations or abrasions. General: No ecchymosis, erythema, or evidence of infection. Psych: Appears grossly normal Affect normal Attitude cooperative Results Reviewed Results Reviewed: X-rays obtained in the office today and independently reviewed by me, Aristides Hayward PA-C, demonstrate no fracture or acute bony abnormality of the right hand or wrist. Assessment & Plan Assessment & Plan (1) Contusion of right wrist: Code(s): S60.211A - Contusion of right wrist, initial encounter Category: Medical Plan 1. Right wrist contusion Date of injury 02/02/2025 Patient is educated about this condition Patient is educated about the typical treatment course Patient is educated that due to lack of any ongoing symptoms, he will require no further acute follow-up or intervention Patient was amenable to this plan Restrictions lifted Follow-up as needed Orders: Orders XR wrist RT w scaphoid 02/28/25 M79.641 - Pain in right hand Coding Level of Care Code Est Pt Level 3 (26814) Diagnoses Contusion of right wrist S60.211A
[2025-02-28 08:53] VITALS: BMI 22.4
--- OUTSIDE RECORDS SUMMARY | 2025-02-28 09:12 | XMS_ITS | Clinical Summary ---
Author Organization [facility] Address [address] [place] [address] Care Team Providers Care Patient Access Coordinator Name Role Phone Juan Luis Eduardo MD Primary Care Provider [phone] Allergies Active Allergy Reactions Criticality Noted Date [...] to complete this topic Insurance MEDICAID [facility] FEE FOR SERVICE HMO Care Teams Patient Access Coordinator Relationship Specialty Start Date End Date Juan Luis Eduardo MD JUAN LUIS EDUARDO, [address] [address] PCP - General Pediatrics 02/11/22
--- OUTSIDE RECORDS SUMMARY | 2025-02-28 09:13 | XMS_ITS | Encounter Summary ---
Author Organization [facility] Address [address] [place] [address] Care Team Providers Care Box Closing Machine Operator Name Role Phone Denny Camacho MD Primary Care Provider [phone] Encounter Details Date Type Department Care Team (Late st Contact Info) Description 05/06/2024 Community Orders [facility] EpicCare Link [address] [place] [address] Wilbur Daley MD [address] [place] [address] [place] [address] Chronic right shoulder pain (Primary Dx) Social [...] documented as of this encounter Care Teams Box Closing Machine Operator Relationship Specialty Start Date End Date Denny Camacho MD [address] [place] [address] PCP - General Family Medicine 02/14/25 documented as of this encounter
--- OUTSIDE RECORDS SUMMARY | 2025-02-28 09:13 | XMS_ITS | Encounter Summary ---
Author Organization [facility] Address [address] [place] [address] Care Team Providers Care Camp Nurse Name Role Phone Denny Camacho MD Primary Care Provider [phone] Encounter Details Date Type Department Care Team (Late st Contact Info) Description 12/02/2021 Community Orders [facility] EpicCare Link [address] [place] [address] Wilbur Daley MD [address] [place] [address] [place] [address] Fever and chills (Primary Dx) Social History [...] Detected GALINDO ZAVALETA 12/03/2021 5:56 AM EST [facility] Comment:A Not [...] RNA, RT PCR Not Detected Not Detected FliteIO 12/03/2021 5:56 AM EST [facility] Comment:Negative results do not preclude infection and should not be used as the sole basis for diagnosis, treatment or other patient management decisions. Negative results must be combined with clinical observations, patient history, and/or epidemiological information. RSV RNA, RT PCR Not Detected Not Detected FliteIO 12/03/2021 5:56 AM EST [facility] Comment:Negative results do not preclude infection and should not be used as the sole basis for diagnosis, treatment or other patient management decisions. Negative results must be combined with clinical observations, patient history, and/or epidemiological information. Saliva Mouth region structure / Unknown Non-Blood Collection / Unknown 12/02/2021 3:12 PM EST 12/02/2021 5:03 PM EST [facility] - 12/03/2021 5:56 AM EST These tests were developed, validated, and their performance characteristics determined by the Molecular Virology Laboratory at [facility] under CLIA [id number]. They have not been cleared or approved by the U.S. Food and Drug Administration (FDA). FDA Policy for Diagnostic Tests for Coronavirus Disease-2019 during the Public Health Emergency issued January 16, 2020, is followed. us Wilbur Daley MD LAB BODY FLUIDS AND STOOLS OR DERABLES Final Result [facility] [address] [place] [address], documented in this encounter Visit Diagnoses Diagnosis [...] documented as of this encounter Care Teams Camp Nurse Relationship Specialty Start Date End Date Denny Camacho MD [address] [place] [address] PCP - General Family Medicine 02/14/25 documented as of this encounter
--- OUTSIDE RECORDS SUMMARY | 2025-02-28 09:13 | XMS_ITS | Encounter Summary ---
Author Organization [facility] Address [address] [place] [address] Care Team Providers Care Mine Analyst Name Role Phone Denny Camacho MD Primary Care Provider [phone] Encounter Details Date Type Department Care Team (Late st Contact Info) Description 01/28/2021 Community Orders [facility] EpicCare Link [address] [place] [address] Wilbur Daley MD [address] [place] [address] [place] [address] Exposure to SARS virus (Primary Dx) Social [...] of this encounter Results * Due to [place] state law, this organization might not be sharing negative HIV tests. * COVID-19 PCR, ADZING AND BORING MACHINE FEEDER/OP/[facility] (01/31/2021 8:44 AM EDT) SARS CoV 2 RNA, RT PCR Not Detected Not Detected BANG ZAVALETA 01/31/2021 4:22 PM EDT [facility] Comment:A [...] AM EDT 01/31/2021 9:28 AM EDT Narrative [facility] - 01/31/2021 4:22 PM EDT These tests were developed, validated, and their performance characteristics determined by the Molecular Virology Laboratory at [facility] under CLIA [id number]. They have not been cleared or approved by the U.S. Food and Drug Administration (FDA). FDA Policy for Diagnostic Tests for Coronavirus Disease-2019 during the Public Health Emergency issued January 16, 2020, is followed. Wilbur Daley MD LAB BODY FLUIDS AND STOOLS OR DERABLES Final Result [facility] [address] [place] [address], documented in this encounter Visit Diagnoses Diagnosis [...] documented as of this encounter Care Teams Mine Analyst Relationship Specialty Start Date End Date Denny Camacho MD [address] [place] [address] PCP - General Family Medicine 02/14/25 documented as of this encounter
--- OUTSIDE RECORDS SUMMARY | 2025-02-28 09:13 | XMS_ITS | Encounter Summary ---
Author Organization [facility] Address [address] [place] [address] Care Team Providers Care Grain Shipper Name Role Phone Denny Camacho MD Primary Care Provider [phone] Encounter Details Date Type Department Care Team (Late st Contact Info) Description 10/29/2021 Community Orders [facility] EpicCare Link [address] [place] [address] Wilbur Daley MD [address] [facility] [address] [place] [address] Close exposure to COVID-19 virus (Primary Dx) [...] of this encounter Results * Due to [place] state law, this organization might not be sharing negative HIV tests. * COVID-19 PCR (Symptomatic), MANUFACTURING ENGINEER PAINT/OP/[facility] (10/29/2021 10:29 AM EST) SARS CoV 2 RNA, RT PCR Not Detected Not Detected THERMOFIS HER QUANT STUDIO 10/30/2021 6:43 AM EST [facility] Comment:A Not [...] AM EST 10/29/2021 12:21 PM EST Narrative [facility] CL[facility] LABOR[facility] - 10/30/2021 6:43 AM EST These tests were developed, validated, and their performance characteristics determined by the Molecular Virology Laboratory at [facility] under CLIA [id number]. They have not been cleared or approved by the U.S. Food and Drug Administration (FDA). FDA Policy for Diagnostic Tests for Coronavirus Disease-2019 during the Public Health Emergency issued January 16, 2020, is followed. Wilbur Daley MD LAB BODY FLUIDS AND STOOLS OR DERABLES Final Result [facility] [address] [place] [id number], documented in this encounter Visit Diagnoses Diagnosis [...] documented as of this encounter Care Teams Grain Shipper Relationship Specialty Start Date End Date Denny Camacho MD [address] [place] [address] PCP - General Family Medicine 02/14/25 documented as of this encounter
--- OUTSIDE RECORDS SUMMARY | 2025-02-28 09:13 | XMS_ITS | Referral Summary ---
Author Organization [facility] Address [address] [place] [address] Care Team Providers Care Operation Agent Name Role Phone Denny Camacho MD Primary Care Provider [phone] Allergies Active Allergy Reactions Criticality Noted Date [...] Multidrug resistant organisms MRSA 08/02/2017 08/02/2017 Insurance [facility] HMO/POS [facility] H[facility]/[place] [address] [place] [address] [place] [address] Care Teams Operation Agent Relationship Specialty Start Date End Date Denny Camacho MD [address] [place] [address] PCP - General Family Medicine 02/14/25
--- OUTSIDE RECORDS SUMMARY | 2025-02-28 09:13 | XMS_ITS | Encounter Summary ---
Author Organization [facility] Address [address] [place] [address] Care Team Providers Care Grounds Worker Name Role Phone Denny Camacho MD Primary Care Provider [phone] Encounter Details Date Type Department Care Team (Late st Contact Info) Description 09/23/2019 Community Orders [facility] EpicCare Link [address] [place] [address] Wilbur Daley MD [address] [place] [address] [place] [address] Chris-Schlatter's disease of both knees (Primary Dx) [...] as of this encounter Visit Diagnoses Diagnosis [place]-Schlatter's disease of both knees- Primary documented in [...] documented as of this encounter Care Teams Grounds Worker Relationship Specialty Start Date End Date Denny Camacho MD [address] [place] [address] PCP - General Family Medicine 02/14/25 documented as of this encounter
--- OUTSIDE RECORDS SUMMARY | 2025-02-28 09:13 | XMS_ITS | Encounter Summary ---
Author Organization [facility] Address [address] [place] [address] Care Team Providers Care Measurement Coordinator Name Role Phone Denny Camacho MD Primary Care Provider [phone] Encounter Details Date Type Department Care Team (Late st Contact Info) Description 02/12/2022 Community Orders [facility] EpicCare Link [address] [place] [address] Wilbur Daley MD [address] [place] [address] [place] [address] Fracture, finger, multiple sites (Primary Dx) Social [...] documented as of this encounter Care Teams Measurement Coordinator Relationship Specialty Start Date End Date Denny Camacho MD [address] [place] [address] PCP - General Family Medicine 02/14/25 documented as of this encounter
--- OUTSIDE RECORDS SUMMARY | 2025-02-28 09:13 | XMS_ITS | Clinical Summary ---
Author Organization [facility] Address [address] [place] [address] Care Team Providers Care Welding Setter Name Role Phone Denny Camacho MD Primary Care Provider [phone] Allergies Active Allergy Reactions Criticality Noted Date [...] 2004 Hepatitis C Screening 2004 1 Week [facility] 2004 1 Month [facility] 2004 2 Month [facility] 2004 4 Month [facility] 2004 6 Month [facility] 2004 9 Month [facility] 02/03/2005 MMR Vaccines (1 of 1 - Stand roseanne series) 2005 12 Month [facility] 05/16/2005 15 Month [facility] 08/02/2005 18 Month [facility] 10/31/2005 24 Month [facility] 04/29/2006 30 Month [facility] 09/02/2006 3 to 21 Year [facility] 2007 Well Child Check 2007 DTaP,Tdap,and [...] Multidrug resistant organisms MRSA 08/02/2017 08/02/2017 Insurance [facility] H[facility]/POS [facility] Care Teams Welding Setter Relationship Specialty Start Date End Date Denny Camacho MD [address] [place] [address] PCP - General Family Medicine 02/14/25
--- OUTSIDE RECORDS SUMMARY | 2025-02-28 09:13 | XMS_ITS | Encounter Summary ---
Author Organization [facility] Address [address] [place] [address] Care Team Providers Care Refuse Collector Supervisor Name Role Phone Denny Camacho MD Primary Care Provider [phone] Encounter Details Date Type Department Care Team (Late st Contact Info) Description 08/24/2020 Orders Only [facility] [address] [place] [address] Wilbur Daley MD [address] [facility] [address] [place] [address] Exposure to SARS-associated coronavirus (Primary Dx) Social [...] of this encounter Results * Due to [place] state law, this organization might not be sharing negative HIV tests. * COVID-19 PCR, DOLL EYE SETTER/OP/[facility] (08/24/2020 11:38 AM EDT) SARS CoV 2 RNA, RT PCR Not Detected Not Detected 08/24/2020 8:37 PM EDT [facility] Comment:A Not Detected (Nega [...] AM EDT 08/24/2020 12:38 PM EDT Narrative [facility] - 08/24/2020 8:37 PM EDT These tests were developed, validated, and their performance characteristics determined by the Molecular Virology Laboratory at [facility] under CLIA [id number]. They have not been cleared or approved by the U.S. Food and Drug Administration (FDA). FDA Policy for Diagnostic Tests for Coronavirus Disease-2019 during the Public Health Emergency issued January 16, 2020, is followed. us Wilbur Daley MD LAB BODY FLUIDS AND STOOLS OR DERABLES Final Result [facility] [address] [place] [address], documented in this encounter Visit Diagnoses Diagnosis [...] documented as of this encounter Care Teams Refuse Collector Supervisor Relationship Specialty Start Date End Date Denny Camacho MD [address] [place] [address] PCP - General Family Medicine 02/14/25 documented as of this encounter
== END 2025-02-28 09:10 | disposition home or self-care (01) ==
DX: S60.211A Contusion of right wrist, initial encounter (principal)
CPT/HCPCS: 99213

== ENCOUNTER → 2025-02-28 08:47 | Outpatient (BNV) | payer BC, SELFPAY | PROVIDERS: Visit Provider Radiology Diagnostic Radiology | DX: M79.641 Pain in right hand (principal) | CPT/HCPCS: 73110 ==

== ENCOUNTER 2025-08-13 18:43 | Emergency (ER) | payer BC, SELFPAY ==
--- NOTE | ~2025-08-13 | CT_ITS ---
CLINICAL HISTORY: injury, pain CT head without contrast Comparison: None provided Findings: BRAIN: No acute infarct, hemorrhage, or mass effect. No abnormal atrophy. CSF SPACES: No hydrocephalus or effacement of basal cisterns. SKULL: No calvarial fracture. SINUSES: Moderate paranasal sinus disease. ORBITS: Limited views are unremarkable. OTHER: Negative. IMPRESSION: 1. No acute intracranial findings. This document has been electronically signed by: Gudelia Salcedo MD on 08/13/2025 20:59:32
--- NOTE | ~2025-08-13 | XR_ITS ---
CLINICAL HISTORY: pain, injury 3 view right hand Comparison: DX - XR WRIST RT W SCAPHOID - 02/14/25 08:12 EDT CR/SR - XR HAND RT 2V - 02/02/25 10:13 EDT Findings: Mildly displaced oblique fracture at the base of the 3rd metacarpal. No foreign body. IMPRESSION: 1. Mildly displaced fracture at the base of the 3rd metacarpal. This document has been electronically signed by: Gudelia Salcedo MD on 08/13/2025 19:19:26
[2025-08-13 18:45] VITALS: BP 141/80; PULSE 105; RESP 14; TEMP 36.8; O2SAT 100; BMI 23.7
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
[2025-08-13 19:24] LABS: MANUAL DIFF FLAG NO
[2025-08-13 19:25] LABS: Hematocrit 46.8 % (42.0-52.0); Hemoglobin 15.9 g/dl (14.0-18.0); Imm Gran Abs Auto 0.03 X10*3/uL (0.00-0.03); Imm Gran Pct Auto 0.3 % (0.0-0.4); Lymphocytes Absolute Auto 3.3 X10*3/uL (1.2-4.9); Mean Corpuscular HGB Conc 34.0 g/dl (31.0-36.0); Mean Corpuscular Hemoglobin 29.4 pg (27.0-33.0); Mean Corpuscular Volume 86.5 fL (80.0-98.0); NRBC Abs Auto 0.000 X10*3/uL (0.0-0.012); NRBC Pct Auto 0.0 /100WBC (0.0-0.2); Platelet Count 274 X10*3/uL (160-400); Red Blood Count 5.41 X10*6/uL (4.60-5.80); White Blood Count 9.9 X10*3/uL (4.8-10.8)
[2025-08-13] MEDS: Diphth,Pertus(ACell),Tet Adult 0.5 ML SYRINGE IM (19:31)
[2025-08-13 19:43] LABS: Alanine Aminotransferase 25 U/L (0-40); Albumin Level 5.1 g/dL (3.5-5.0); Alkaline Phosphatase 143 U/L (39-117); Anion Gap 16 (12-20); Aspartate Amino Transferase 33 U/L (5-37); Blood Urea Nitrogen 13 mg/dL (9-16); Calcium 9.7 mg/dL (8.4-10.2); Carbon Dioxide 27 mmol/L (22-29); Chloride 106 mmol/L (96-108); Creatinine Clr Calc Pharmacy 113.8; Estimated Glomerular Filt Rate > 60; Potassium 4.2 mmol/L (3.3-5.1); Sodium 145 mmol/L (135-145); Total Protein 8.0 g/dL (6.5-8.0)
--- OUTSIDE RECORDS SUMMARY | 2025-08-13 19:50 | XMS_ITS | Clinical Summary ---
Author Organization [facility] Address [address] [place] [address] Care Team Providers Care Museum Attendant Name Role Phone Juan Luis Eduardo MD Primary Care Provider [phone] Allergies Active Allergy Reactions Criticality Noted Date Comments Nuts 07/31/2013 Medications Fluticasone Propionate HFA (FLOVENT HFA) 110 MCG/ACT Aerosol None Entered Active Active Problems No known active problems Immunizations Immunization Administration Dates Next Due COVID-19, mRNA (Pfizer [...] 78 02/11/2022 3:45 PM EDT Temperature 36.4 C (97.6 F) 02/11/2022 3:45 PM EDT Respiratory Rate 20 02/11/2022 3:45 PM EDT [...] 19+ 3-dose series) 2023 COVID-19 Vaccine ( - 2024- season) 2025 05/19/2022, 06/30/2021, 06/09/2021 Influenza (#1) 2025 09/13/2021, 12/2019, 09/09/2019, Additional history exists DTaP/Tdap/Td (2 - [...] age to complete this topic Insurance MEDICAID [facility] F[facility] FOR [facility] HMO Care Teams Museum Attendant Relationship Specialty Start Date End Date Juan Luis Eduardo MD JUAN LUIS EDUARDO, [address] [address] PCP - General Pediatrics 02/11/22
--- OUTSIDE RECORDS SUMMARY | 2025-08-13 19:50 | XMS_ITS | Encounter Summary ---
Author Organization [facility] Address [address] [place] [address] Care Team Providers Care Welder Name Role Phone Denny Camacho MD Primary Care Provider [phone] Encounter Details Date Type Department Care Team (Late st Contact Info) Description 10/29/2021 Community Orders [facility] EpicCare Link [address] [place] [address] Wilbur Daley MD [address] [facility] [address] [place] [address] Close exposure to COVID-19 virus (Primary Dx) [...] of this encounter Results * Due to [place] state law, this organization might not be sharing negative HIV tests. * COVID-19 PCR (Symptomatic), USED CAR SALES MANAGER/OP/[facility]iva (10/29/2021 10:29 AM EST) SARS CoV 2 RNA, RT PCR Not Detected Not Detected THERMOFIS HER QUANT STUDIO 10/30/2021 6:43 AM EST [facility] Comment:A Not [...] AM EST 10/29/2021 12:21 PM EST Narrative [facility] [facility]OR[facility] - 10/30/2021 6:43 AM EST These tests were developed, validated, and their performance characteristics determined by the Molecular Virology Laboratory at [facility] under CLIA [id number]. They have not been cleared or approved by the U.S. Food and Drug Administration (FDA). FDA Policy for Diagnostic Tests for Coronavirus Disease-2019 during the Public Health Emergency issued January 16, 2020, is followed. Wilbur Daley MD LAB BODY FLUIDS AND STOOLS OR DERABLES Final Result [facility] [address] [place] [id number], documented in this encounter Visit Diagnoses Diagnosis [...] documented as of this encounter Care Teams Welder Relationship Specialty Start Date End Date Denny Camacho MD [address] [place] [address] PCP - General Family Medicine 02/14/25 documented as of this encounter
--- OUTSIDE RECORDS SUMMARY | 2025-08-13 19:50 | XMS_ITS | Encounter Summary ---
Author Organization [facility] Address [address] [place] [address] Care Team Providers Care Outsole Compressor Name Role Phone Denny Camacho MD Primary Care Provider [phone] Encounter Details Date Type Department Care Team (Late st Contact Info) Description 12/02/2021 Community Orders [facility] EpicCare Link [address] [place] [address] Wilbur Daley MD [address] [place] [address] [place] [address] Fever and chills (Primary Dx) Social History [...] of this encounter Results * Due to [place] state law, this organization might not be sharing negative HIV tests. * COVID-19, Flu A/B & RSV RNA PCR, Symptomatic (12/02/2021 3:12 PM EST) SARS CoV 2 RNA, RT PCR Not Detected Not Detected GALINDO ZAVALETA 12/03/2021 5:56 AM EST [facility] Comment:A Not [...] RNA, RT PCR Not Detected Not Detected Events [facility] 12/03/2021 5:56 AM EST [facility] CLINICAL PATHOLOG[facility] LABOR[facility]ORY Comment:Negative results do not preclude infection and should not be used as the sole basis for diagnosis, treatment or other patient management decisions. Negative results must be combined with clinical observations, patient history, and/or epidemiological information. RSV RNA, RT PCR Not Detected Not Detected Events [facility] 12/03/2021 5:56 AM EST [facility] Comment:Negative results do not preclude infection and should not be used as the sole basis for diagnosis, treatment or other patient management decisions. Negative results must be combined with clinical observations, patient history, and/or epidemiological information. Saliva Mouth region structure / Unknown Non-Blood Collection / Unknown 12/02/2021 3:12 PM EST 12/02/2021 5:03 PM EST [facility] - 12/03/2021 5:56 AM EST These tests were developed, validated, and their performance characteristics determined by the Molecular Virology Laboratory at [facility] under CLIA [id number]. They have not been cleared or approved by the U.S. Food and Drug Administration (FDA). FDA Policy for Diagnostic Tests for Coronavirus Disease-2019 during the Public Health Emergency issued January 16, 2020, is followed. us Wilbur Daley MD LAB BODY FLUIDS AND STOOLS OR DERABLES Final Result [facility] [address] [place] [address], documented in this encounter Visit Diagnoses Diagnosis [...] documented as of this encounter Care Teams Outsole Compressor Relationship Specialty Start Date End Date Denny Camacho MD [address] [place] [address] PCP - General Family Medicine 02/14/25 documented as of this encounter
--- OUTSIDE RECORDS SUMMARY | 2025-08-13 19:50 | XMS_ITS | Encounter Summary ---
Author Organization [facility] Address [address] [place] [address] Care Team Providers Care Whizzer Operator Name Role Phone Denny Camacho MD Primary Care Provider [phone] Encounter Details Date Type Department Care Team (Late st Contact Info) Description 01/28/2021 Community Orders [facility] EpicCare Link [address] [place] [address] Wilbur Daley MD [address] [place] [address] [place] [address] Exposure to SARS virus (Primary Dx) Social [...] sharing negative HIV tests. * COVID-19 PCR, DIRECTOR CHECK/OP/[facility]iva (01/31/2021 8:44 AM EDT) SARS CoV 2 RNA, RT PCR Not Detected Not Detected BANG ZAVALETA 01/31/2021 4:22 PM EDT [facility] Comment:A [...] AM EDT 01/31/2021 9:28 AM EDT Narrative [facility] - 01/31/2021 4:22 PM EDT These tests were developed, validated, and their performance characteristics determined by the Molecular Virology Laboratory at [facility] under CLIA [id number]. They have not been cleared or approved by the U.S. Food and Drug Administration (FDA). FDA Policy for Diagnostic Tests for Coronavirus Disease-2019 during the Public Health Emergency issued January 16, 2020, is followed. Wilbur Daley MD LAB BODY FLUIDS AND STOOLS OR DERABLES Final Result [facility] [address] [place] [address], documented in this encounter Visit Diagnoses Diagnosis [...] documented as of this encounter Care Teams Whizzer Operator Relationship Specialty Start Date End Date Denny Camacho MD [address] [place] [address] PCP - General Family Medicine 02/14/25 documented as of this encounter
--- OUTSIDE RECORDS SUMMARY | 2025-08-13 19:50 | XMS_ITS | Encounter Summary ---
Author Organization [facility] Address [address] [place] [address] Care Team Providers Care Forging Dies Final Finisher Name Role Phone Denny Camacho MD Primary Care Provider [phone] Encounter Details Date Type Department Care Team (Late st Contact Info) Description 02/12/2022 Community Orders [facility] EpicCare Link [address] [place] [address] Wilbur Daley MD [address] [place] [address] [place] [address] Fracture, finger, multiple sites (Primary Dx) Social [...] documented as of this encounter Care Teams Forging Dies Final Finisher Relationship Specialty Start Date End Date Denny Camacho MD [address] [place] [address] PCP - General Family Medicine 02/14/25 documented as of this encounter
--- OUTSIDE RECORDS SUMMARY | 2025-08-13 19:50 | XMS_ITS | Clinical Summary ---
Author Organization [facility] Address [address] [place] [address] Care Team Providers Care Dye House Helper Name Role Phone Denny Camacho MD Primary Care Provider [phone] Allergies Active Allergy Reactions Criticality Noted Date [...] hernia 09/09/2009 Inguinal hernia 09/09/2009 Asthma 09/09/2009 Immunizations Immunization Administration Dates Next Due Hepatitis A Vaccine, Pediatric/Adolescent Dosage, 2 Dose Schedule 02/02/2018,01/29/2017 Human Papillomavirus 9-Valent Vaccine 02/02/2018 ,01/29/2017 Influenza, Injectable, Quadr ivalent, Preservative Free 09/13/2021,08/03/2020,09/09/2019,08/26,12/07/2017,09/13/2015 Meningococcal Polysaccharide (Groups A, C, Y and W-135) Diphtheria Toxoid Conjugate Vaccine (MCV4P) 08/03/2020,01/29/2016 Tetanus Toxoid, Reduced Diph theria Toxoid, and Acellular Pertussis Vaccine, Adsorbed 01/29/2016 Family History Medical History Relation Name Comments [...] 67 09/27/2023 1:45 AM EST Temperature 37.3 C (99.1 F) 09/26/2023 10:19 PM EST Respiratory Rate 17 09/27/2023 1:45 AM EST [...] Hepatitis C Screening [address] [facility] [address] [facility] [address] [facility] [address] [facility] [address] [facility] [address] [facility] 02/03/2005 MMR Vaccines (1 of 1 - Stand roseanne series) [address] [facility] 05/16/[address] [facility] 08/02/[address] [facility] 10/31/[address] [facility] 04/29/[address] [facility] 09/02/[address] [facility] 2007 Well Child Check 2007 DTaP,Tdap,and Td Vaccines (2 - Td or Tdap) 02/26/2016 01/29/2016 Varicella Vaccines (1 of 2 - 13+ 2-dose series) 2017 Hepatitis B Vaccines (1 of 3 - 19+ 3-dose series) 2023 Pneumococcal Vaccine: Pediat michael (0-5 Years) and At-Risk Patients (6-50 Years) (1 of 2 - PCV) 2023 Alcohol/Substance Use Screening 11/02/2024 Depression Screening and Follow-Up 11/02/2024 Social Drivers of Health Mona ual Screening 11/02/2024 COVID-19 Vaccine (4 - 2024-2 6 season) 2025 05/19/2022, 06/30/2021, 06/09/2021 Influenza Vaccine (#1) 2025 , 08/03/2020, 09/09/2019, Additional history exists RSV Vaccine (60+ years old a nd patients) (1 - 1-dose 75+ series) 2079 HPV Vaccines Completed 02/02/2018, 01/29/2017 Meningococcal Vaccine Completed 08/03/2020, 016 Additional Health Concerns Infection Onset Date Last Indicated Multidrug resistant organisms MRSA 08/02/2017 08/02/2017 Insurance [facility] HMO/POS Member Subscriber Plan / Payer (Ef fective 2016-Present) Name:Neil Kaminski Relation to Subscriber:Child Name:Ti Kaminski Date of :1969 (Home) Address: [address] [place] [address] Payer ID:[id number] (NAIC) Type:Not on file [id number] [facility] Member Subscriber Plan / Payer (Ef fective 2016-Present) Name:Neil Kaminski Relation to Subscriber:Child Name:YamilexTi Isidro Date of :1969 (Home) Address: [address] [place] [address] Payer ID:[id number] (NAIC) Type:Not on file Address: [id number] [place] [address] Care Teams Dye House Helper Relationship Specialty Start Date End Date Denny Camacho MD [address] [place] [address] PCP - General Family Medicine 02/14/25
--- OUTSIDE RECORDS SUMMARY | 2025-08-13 19:50 | XMS_ITS | Encounter Summary ---
Author Organization [facility] Address [address] [place] [address] Care Team Providers Care Lay Out Drafter Name Role Phone Denny Camacho MD Primary Care Provider Encounter Details Date Type Department Care Team (Late st Contact Info) Description 08/24/2020 Orders Only [facility] [address] [place] [address] Wilbur Daley MD [address] [facility] [address] [place] [address] Exposure to SARS-associated coronavirus (Primary Dx) Social [...] sharing negative HIV tests. * COVID-19 PCR, BUILDING MAINTENANCE SUPERINTENDENT/OP/Saliva (08/24/2020 11:38 AM EDT) SARS CoV 2 RNA, RT PCR Not Detected Not Detected 08/24/2020 8:37 PM EDT [facility] Comment:A Not Detected [...] AM EDT 08/24/2020 12:38 PM EDT Narrative [facility] - 08/24/2020 8:37 PM EDT These tests were developed, validated, and their performance characteristics determined by the Molecular Virology Laboratory at [facility] under CLIA [id number]. They have not been cleared or approved by the U.S. Food and Drug Administration (FDA). FDA Policy for Diagnostic Tests for Coronavirus Disease-2019 during the Public Health Emergency issued January 16, 2020, is followed. us Wilbur Daley MD LAB BODY FLUIDS AND STOOLS OR DERABLES Final Result [facility] [address] [place] [address], documented in this encounter Visit Diagnoses Diagnosis [...] documented as of this encounter Care Teams Lay Out Drafter Relationship Specialty Start Date End Date Denny Camacho MD [address] [place] [address] PCP - General Family Medicine 02/14/25 documented as of this encounter
--- OUTSIDE RECORDS SUMMARY | 2025-08-13 19:50 | XMS_ITS | Encounter Summary ---
Author Organization [facility] Address [address] [place] [address] Care Team Providers Care Clinical Trial Specialist Name Role Phone Denny Camacho MD Primary Care Provider [phone] Encounter Details Date Type Department Care Team (Late st Contact Info) Description 09/23/2019 Community Orders [facility] EpicCare Link [address] [place] [address] Wilbur Daley MD [address] [place] [address] [place] [address] Chris-Schlatter's disease of both knees (Primary Dx) [...] as of this encounter Visit Diagnoses Diagnosis Chris-Schlatter's disease of both knees- Primary documented in [...] documented as of this encounter Care Teams Clinical Trial Specialist Relationship Specialty Start Date End Date Denny Camacho MD [address] [place] [address] PCP - General Family Medicine 02/14/25 documented as of this encounter
--- OUTSIDE RECORDS SUMMARY | 2025-08-13 19:50 | XMS_ITS | Encounter Summary ---
Author Organization [facility] Address [address] [place] [address] Care Team Providers Care Rhinestone Setter Name Role Phone Denny Camacho MD Primary Care Provider [phone] Encounter Details Date Type Department Care Team (Late st Contact Info) Description 05/06/2024 Community Orders [facility] EpicCare Link [address] [place] [address] Wilbur Daley MD [address] [place] [address] [place] [address] Chronic right shoulder pain (Primary Dx) Social [...] documented as of this encounter Care Teams Rhinestone Setter Relationship Specialty Start Date End Date Denny Camacho MD [address] [place] [address] PCP - General Family Medicine 02/14/25 documented as of this encounter
[2025-08-13 20:40] VITALS: BP 135/68; PULSE 69; RESP 18; TEMP 36.6; O2SAT 98
[2025-08-13 22:23] VITALS: BP 128/66; PULSE 71; RESP 17; TEMP 36.8; O2SAT 97
[2025-08-13 22:54] VITALS: BP 128/66; PULSE 71; RESP 17; TEMP 36.8; O2SAT 97
== END 2025-08-13 22:54 | disposition home or self-care (01) ==
PROVIDERS: Physician Assistant Medical; Emergency Provider Student in an Organized Health Care Education/Training Program
DX: S62.312A Displaced fracture of base of third metacarpal bone, right hand, initial encounter for closed fracture (principal); R51.9 Headache, unspecified; Y04.2XXA Assault by strike against or bumped into by another person, initial encounter; Y93.9 Activity, unspecified; Y92.9 Unspecified place or not applicable; Y99.9 Unspecified external cause status; M79.89 Other specified soft tissue disorders
CPT/HCPCS: 36415; 70450; 73130; 80053; 85025; 85652; 86140; 90471; 90715; 99284

== ENCOUNTER → 2025-08-13 18:48 | Outpatient (BNV) | payer BC, SELFPAY | PROVIDERS: Visit Provider Student in an Organized Health Care Education/Training Program | DX: S09.90XA Unspecified injury of head, initial encounter (principal); S62.312A Displaced fracture of base of third metacarpal bone, right hand, initial encounter for closed fracture | CPT/HCPCS: 70450; 73130 ==

== ENCOUNTER 2025-08-16 13:50 | Outpatient (AMB) | payer BC, SELFPAY ==
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
[2025-08-16 14:03] VITALS: BMI 24.4
--- OUTSIDE RECORDS SUMMARY | 2025-08-16 17:34 | XMS_ITS | Encounter Summary ---
Author Organization [facility] Address [address] [place] [address] Care Team Providers Care Mechanical Manufacturing Engineer Name Role Phone Denny Camacho MD Primary Care Provider [phone] Encounter Details Date Type Department Care Team (Late st Contact Info) Description 09/23/2019 Community Orders [facility] EpicCare Link [address] [place] [address] Wilbur Daley MD [address] [place] [address] [place] [address] Chris-Schlatter's disease of both knees (Primary Dx) [...] documented as of this encounter Care Teams Mechanical Manufacturing Engineer Relationship Specialty Start Date End Date Denny Camacho MD [address] [place] [address] PCP - General Family Medicine 02/14/25 documented as of this encounter
--- OUTSIDE RECORDS SUMMARY | 2025-08-16 17:34 | XMS_ITS | Clinical Summary ---
Author Organization [facility] Address [address] [place] [address] Care Team Providers Care Earth Science Faculty Member Name Role Phone Denny Camacho MD Primary Care Provider [phone] Allergies Active Allergy Reactions Criticality Noted Date [...] 2004 Hepatitis C Screening 2004 1 Week [facility] 2004 1 Month [facility] 2004 2 Month [facility] 2004 4 Month [facility] 2004 6 Month [facility] 2004 9 Month [facility] 02/03/2005 MMR Vaccines (1 of 1 - Stand roseanne series) 2005 12 Month [facility] 05/16/2005 15 Month [facility] 08/02/2005 18 Month [facility] 10/31/2005 24 Month [facility] 04/29/2006 30 Month [facility] 09/02/2006 3 to 21 Year [facility] 2007 Well Child Check 2007 DTaP,Tdap,and Td [...] Multidrug resistant organisms MRSA 08/02/2017 08/02/2017 Insurance [facility] HMO/POS Member Subscriber Plan / Payer (Ef fective 2016-Present) Name:Neil Kaminski Relation to Subscriber:Child Name:Ti Kaminski Date of :1969 (Home) Address: [address] [place] [address] Payer ID:[id number] (NAIC) Type:Not on file Address[phone] [facility] Member Subscriber Plan / Payer (Ef fective 2016-Present) Name:Neil Kaminski Relation to Subscriber:Child Name:YamilexTi Isidro Date of :1969 (Home) Address: [address] [place] [address] Payer ID:[id number] (NAIC) Type:Not on file Address: [address] [place] [address] Care Teams Earth Science Faculty Member Relationship Specialty Start Date End Date Denny Camacho MD [address] [place] [address] PCP - General Family Medicine 02/14/25
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
--- OUTSIDE RECORDS SUMMARY | 2025-08-16 17:34 | XMS_ITS | Encounter Summary ---
Author Organization [facility] Address [address] [place] [address] Care Team Providers Care Shredder Operator Name Role Phone Denny Camacho MD Primary Care Provider [phone] Encounter Details Date Type Department Care Team (Late st Contact Info) Description 05/06/[address] [facility] EpicCare Link [address] [place] [address] Wilbur Daley MD [address] [place] [address] [place] [address] Chronic right shoulder pain (Primary Dx) Social [...] documented as of this encounter Care Teams Shredder Operator Relationship Specialty Start Date End Date Denny Camacho MD [address] [place] [address] PCP - General Family Medicine 02/14/25 documented as of this encounter
--- OUTSIDE RECORDS SUMMARY | 2025-08-16 17:34 | XMS_ITS | Encounter Summary ---
Author Organization [facility] Address [address] [place] [address] Care Team Providers Care Boating Safety Officer Name Role Phone Denny Camacho MD Primary Care Provider [phone] Encounter Details Date Type Department Care Team (Late st Contact Info) Description 08/24/2020 Orders Only [facility] [address] [place] [address] Wilbur Daley MD 299 [facility] [address] [place] [address] Exposure to SARS-associated coronavirus (Primary Dx) Social [...] sharing negative HIV tests. * COVID-19 PCR, JEWELRY CASTING MODEL MAKER APPRENTICE/OP/Saliva (08/24/2020 11:38 AM EDT) SARS CoV 2 RNA, RT PCR Not Detected Not Detected 08/24/2020 8:37 PM EDT [facility] Comment:A Not Detected [...] AM EDT 08/24/2020 12:38 PM EDT Narrative [facility] - 08/24/2020 8:37 PM EDT These tests were developed, validated, and their performance characteristics determined by the Molecular Virology Laboratory at [facility] under CLIA [id number]. They have not been cleared or approved by the U.S. Food and Drug Administration (FDA). FDA Policy for Diagnostic Tests for Coronavirus Disease-2019 during the Public Health Emergency issued January 16, 2020, is followed. us Wilbur Daley MD LAB BODY FLUIDS AND STOOLS OR DERABLES Final Result [facility] [address] [place] [address], documented in this encounter Visit Diagnoses Diagnosis [...] documented as of this encounter Care Teams Boating Safety Officer Relationship Specialty Start Date End Date Denny Camacho MD [address] [place] [address] PCP - General Family Medicine 02/14/25 documented as of this encounter
--- OUTSIDE RECORDS SUMMARY | 2025-08-16 17:34 | XMS_ITS | Encounter Summary ---
Author Organization [facility] Address [address] [place] [address] Care Team Providers Care Pitting Machine Operator Name Role Phone Denny Camacho MD Primary Care Provider [phone] Encounter Details Date Type Department Care Team (Late st Contact Info) Description 02/12/2022 Community Orders [facility] EpicCare Link [address] [place] [address] Wilbur Daley MD [address] [place] [address] [place] [address] Fracture, finger, multiple sites (Primary Dx) Social [...] documented as of this encounter Care Teams Pitting Machine Operator Relationship Specialty Start Date End Date Denny Camacho MD [address] [place] [address] PCP - General Family Medicine 02/14/25 documented as of this encounter
--- OUTSIDE RECORDS SUMMARY | 2025-08-16 17:34 | XMS_ITS | Clinical Summary ---
Author Organization [facility] Address [address] [place] [address] Care Team Providers Care Pulp Mill Team Leader Name Role Phone Juan Luis Eduardo MD Primary Care Provider [phone] Allergies Active Allergy Reactions Criticality Noted Date [...] age to complete this topic Insurance MEDICAID [facility] FEE FOR SERVICE HMO Care Teams Pulp Mill Team Leader Relationship Specialty Start Date End Date Juan Luis Eduardo MD JUAN LUIS EDUARDO, [address] [address] PCP - General Pediatrics 02/11/22
--- OUTSIDE RECORDS SUMMARY | 2025-08-16 17:34 | XMS_ITS | Encounter Summary ---
Author Organization [facility] Address [address] [place] [address] Care Team Providers Care Controller Repairer And Tester Name Role Phone Denny Camacho MD Primary Care Provider [phone] Encounter Details Date Type Department Care Team (Late st Contact Info) Description 01/28/2021 Community Orders [facility] EpicCare Link [address] [place] [address] Wilbru Daley MD [address] [place] [address] [place] [address] Exposure to SARS virus (Primary Dx) Social [...] sharing negative HIV tests. * COVID-19 PCR, CONTRACT SPECIALIST/OP/Saliva (01/31/2021 8:44 AM EDT) SARS CoV 2 RNA, RT PCR Not Detected Not Detected BANG ZAVALETA 01/31/2021 4:22 PM EDT [facility] Comment:A Not [...] AM EDT 01/31/2021 9:28 AM EDT Narrative [facility] - 01/31/2021 4:22 PM EDT These tests were developed, validated, and their performance characteristics determined by the Molecular Virology Laboratory at [facility] under CLIA [id number]. They have not been cleared or approved by the U.S. Food and Drug Administration (FDA). FDA Policy for Diagnostic Tests for Coronavirus Disease-2019 during the Public Health Emergency issued January 16, 2020, is followed. Wilbur Daley MD LAB BODY FLUIDS AND STOOLS OR DERABLES Final Result [facility] LAB[facility] [address] [place] [address], documented in this encounter Visit Diagnoses Diagnosis [...] documented as of this encounter Care Teams Controller Repairer And Tester Relationship Specialty Start Date End Date Denny Camacho MD [address] [place] [address] PCP - General Family Medicine 02/14/25 documented as of this encounter
--- OUTSIDE RECORDS SUMMARY | 2025-08-16 17:34 | XMS_ITS | Encounter Summary ---
Author Organization [facility] Address [address] [place] [address] Care Team Providers Care Slp Name Role Phone Denny Camacho MD Primary Care Provider Encounter Details Date Type Department Care Team (Late st Contact Info) Description 10/29/2021 Community Orders [facility] EpicCare Link [address] [place] [address] Wilbur Daley MD 299 [facility] [address] [place] [address] Close exposure to COVID-19 virus (Primary Dx) [...] of this encounter Results * Due to [place] state law, this organization might not be sharing negative HIV tests. * COVID-19 PCR (Symptomatic), SPANISH TRANSLATOR/OP/Saliva (10/29/2021 10:29 AM EST) SARS CoV 2 RNA, RT PCR Not Detected Not Detected THERMOFIS HER QUANT STUDIO 10/30/2021 6:43 AM EST [facility] Comment:A Not [...] AM EST 10/29/2021 12:21 PM EST Narrative [facility]OR[facility] - 10/30/2021 6:43 AM EST These tests were developed, validated, and their performance characteristics determined by the Molecular Virology Laboratory at [facility] under CLIA [id number]. They have not been cleared or approved by the U.S. Food and Drug Administration (FDA). FDA Policy for Diagnostic Tests for Coronavirus Disease-2019 during the Public Health Emergency issued January 16, 2020, is followed. Wilbur Daley MD LAB BODY FLUIDS AND STOOLS OR DERABLES Final Result [facility] [address] [place] [id number], documented in this encounter Visit Diagnoses Diagnosis [...] documented as of this encounter Care Teams Slp Relationship Specialty Start Date End Date Denny Camacho MD [address] [place] [address] PCP - General Family Medicine 02/14/25 documented as of this encounter
== END 2025-08-16 14:29 | disposition home or self-care (01) ==
LOC: HO.HOS 13:50
DX: S62.312A Displaced fracture of base of third metacarpal bone, right hand, initial encounter for closed fracture (principal)
CPT/HCPCS: 99213

== ENCOUNTER → 2025-08-16 13:52 | Outpatient (BNV) | payer BC, SELFPAY | PROVIDERS: Visit Provider Radiology Diagnostic Radiology | DX: S62.312A Displaced fracture of base of third metacarpal bone, right hand, initial encounter for closed fracture (principal) | CPT/HCPCS: 73130 ==

== ENCOUNTER 2025-08-16 16:11 | Outpatient (REF) | payer BC, SELFPAY ==
--- NOTE | ~2025-08-16 | XR_ITS ---
EXAMINATION: XR HAND 3 OR MORE VIEWS RIGHT HISTORY: M79.641 - Pain in right hand COMPARISON: Comparison is made with the prior examination dated 08/13/2025. FINDINGS: Three views of the right hand are submitted. Osseous mineralization is normal. Again seen is a minimally displaced oblique fracture of the base of the 3rd metacarpal. The fracture line remains visible. The joint spaces are preserved. The soft tissues are unremarkable. XR/XR hand RT min 3V IMPRESSION: Minimally displaced oblique fracture of the base of the 3rd metacarpal without significant change. Electronically signed by: Michael Nelson MD 08/16/2025 02:30 PM EDT
== END 2025-08-16 16:12 | disposition home or self-care (01) ==
LOC: HO.HOSX 16:11
PROVIDERS: Visit Provider Orthopaedic Surgery
DX: S62.312A Displaced fracture of base of third metacarpal bone, right hand, initial encounter for closed fracture (principal); W50.0XXA Accidental hit or strike by another person, initial encounter
CPT/HCPCS: 73130

== ENCOUNTER 2025-09-06 13:05 | Outpatient (REF) | payer BC, SELFPAY ==
--- NOTE | ~2025-09-06 | XR_ITS ---
EXAMINATION: XR HAND 3 OR MORE VIEWS RIGHT HISTORY: M79.641 - Pain in right hand COMPARISON: Comparison is made with the prior examination dated 08/16/2025. FINDINGS: Three views of the right hand are submitted. Osseous mineralization is normal. Again seen is a fracture of the base of the 3rd metacarpal. There is callus formation noted on the current study, consistent with healing. The fracture line remains visible. The joint spaces are preserved. The soft tissues are unremarkable. XR/XR hand RT min 3V IMPRESSION: Healing fracture of the base of the 3rd metacarpal. Electronically signed by: Micheal Nelson MD 09/06/2025 01:49 PM EST
--- OUTSIDE RECORDS SUMMARY | 2025-09-06 15:52 | XMS_ITS | Encounter Summary ---
Author Organization [facility] Address [address] [place] [address] Care Team Providers Care Tool And Die Technician Name Role Phone Denny Camacho MD Primary Care Provider [phone] Encounter Details Date Type Department Care Team (Late st Contact Info) Description 02/12/2022 Community Orders [facility] EpicCare Link [address] [place] [address] Wilbur Daley MD [address] [place] [address] [place] [address] Fracture, finger, multiple sites (Primary Dx) Social [...] documented as of this encounter Care Teams Tool And Die Technician Relationship Specialty Start Date End Date Denny Camacho MD [address] [place] [address] PCP - General Family Medicine 02/14/25 documented as of this encounter
--- OUTSIDE RECORDS SUMMARY | 2025-09-06 15:52 | XMS_ITS | Encounter Summary ---
Author Organization [facility] Address [address] [place] [address] Care Team Providers Care Director Of Outside Sales Name Role Phone Denny Camacho MD Primary Care Provider [phone] Encounter Details Date Type Department Care Team (Late st Contact Info) Description 09/23/2019 Community Orders [facility] EpicCare Link [address] [place] [address] Wilbur Daley MD [address] [place] [address] [place] [address] Chris-Schlatter's disease of both knees (Primary Dx) [...] documented as of this encounter Care Teams Director Of Outside Sales Relationship Specialty Start Date End Date Denny Camacho MD [address] [place] [address] PCP - General Family Medicine 02/14/25 documented as of this encounter
--- OUTSIDE RECORDS SUMMARY | 2025-09-06 15:52 | XMS_ITS | Encounter Summary ---
Author Organization [facility] Address [address] [place] [address] Care Team Providers Care Drawer Liner Name Role Phone Denny Camacho MD Primary Care Provider [phone] Encounter Details Date Type Department Care Team (Late st Contact Info) Description 05/06/2024 Community Orders [facility] EpicCare Link [address] [place] [address] Wilbur Daley MD [address] [place] [address] [place] [address] Chronic right shoulder pain (Primary Dx) Social [...] documented as of this encounter Care Teams Drawer Liner Relationship Specialty Start Date End Date Denny Camacho MD [address] [place] [address] PCP - General Family Medicine 02/14/25 documented as of this encounter
--- OUTSIDE RECORDS SUMMARY | 2025-09-06 15:52 | XMS_ITS | Clinical Summary ---
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/02/2017 08/02/2017 Insurance [facility] HMO/POS Member Subscriber Plan / Payer (Ef fective 2016-Present) Name:Neil Kaminski Relation to Subscriber:Child Name:Ti Kaminski Date of :1968 (Home) Address: [address] [place] [address] Payer ID:[id number] (NAIC) Type:Not on file Address[id number] [facility] H[facility]/POS Member Subscriber Plan / Payer (Ef fective 2016-Present) Name:Neil Kaminski Relation to Subscriber:Child Name:YamilexTi Isidro Date of :1968 (Home) Address: [address] [place] [address] Payer ID:[id number] (NAIC) Type:Not on file Address: [address] [place] [address] Care Teams Studio Technician Video Operator Relationship Specialty Start Date End Date Denny Camacho MD [address] [place] [address] PCP - General Family Medicine 02/14/25
--- OUTSIDE RECORDS SUMMARY | 2025-09-06 15:52 | XMS_ITS | Encounter Summary ---
Author Organization [facility] Address [address] [place] [address] Care Team Providers Care Unemployment Benefits Claims Taker Name Role Phone Denny Camacho MD Primary Care Provider [phone] Encounter Details Date Type Department Care Team (Late st Contact Info) Description 10/29/[address] [facility] EpicCare Link [address] [place] [address] Wilbur Daley MD 299 [facility] [address] [place] [address] Close exposure to COVID-19 virus (Primary Dx) [...] of this encounter Results * Due to [place] state law, this organization might not be sharing negative HIV tests. * COVID-19 PCR (Symptomatic), REGULATORY AGENCY DIRECTOR/OP/[facility]iva (10/29/2021 10:29 AM EST) SARS CoV 2 RNA, RT PCR Not Detected Not Detected THERMOFIS HER QUANT STUDIO 10/30/2021 6:43 AM EST [facility] Comment:A Not [...] AM EST 10/29/2021 12:21 PM EST Narrative [facility]ITALiCrederityTR[facility] [employer] CL[facility]ICAL PATHOLOG[facility] LABORATORY - 10/30/2021 6:43 AM EST These tests were developed, validated, and their performance characteristics determined by the Molecular Virology Laboratory at [facility] under CLIA [id number]. They have not been cleared or approved by the U.S. Food and Drug Administration (FDA). FDA Policy for Diagnostic Tests for Coronavirus Disease-2019 during the Public Health Emergency issued January 16, 2020, is followed. Wilbur Daley MD LAB BODY FLUIDS AND STOOLS OR DERABLES Final Result [facility] LAB[facility] [address] [place] [id number], documented in this encounter Visit Diagnoses Diagnosis [...] documented as of this encounter Care Teams Unemployment Benefits Claims Taker Relationship Specialty Start Date End Date Denny Camacho MD [address] [place] [address] PCP - General Family Medicine 02/14/25 documented as of this encounter
--- OUTSIDE RECORDS SUMMARY | 2025-09-06 15:52 | XMS_ITS | Encounter Summary ---
Author Organization [facility] Address [address] [place] [address] Care Team Providers Care Nursing Program Coordinator Name Role Phone Denny Camacho MD Primary Care Provider [phone] Encounter Details Date Type Department Care Team (Late st Contact Info) Description 12/02/[address] [facility] EpicCare Link [address] [place] [address] Wilbur Daley MD [address] [place] [address] [place] [address] Fever and chills (Primary Dx) Social History [...] Detected GALINDO ZAVALETA 12/03/2021 5:56 AM EST [facility] Comment:A [...] RNA, RT PCR Not Detected Not Detected [facility] 12/03/2021 5:56 AM EST [facility] Comment:Negative results do not preclude infection and should not be used as the sole basis for diagnosis, treatment or other patient management decisions. Negative results must be combined with clinical observations, patient history, and/or epidemiological information. RSV RNA, RT PCR Not Detected Not Detected [facility] 12/03/2021 5:56 AM EST [facility] Comment:Negative results do not preclude infection and should not be used as the sole basis for diagnosis, treatment or other patient management decisions. Negative results must be combined with clinical observations, patient history, and/or epidemiological information. Saliva Mouth region structure / Unknown Non-Blood Collection / Unknown 12/02/2021 3:12 PM EST 12/02/2021 5:03 PM EST [facility] - 12/03/2021 5:56 AM EST These tests were developed, validated, and their performance characteristics determined by the Molecular Virology Laboratory at [facility] under CLIA [id number]. They have not been cleared or approved by the U.S. Food and Drug Administration (FDA). FDA Policy for Diagnostic Tests for Coronavirus Disease-2019 during the Public Health Emergency issued January 16, 2020, is followed. us Wilbur Daley MD LAB BODY FLUIDS AND STOOLS OR DERABLES Final Result [email or web address] CLINICAL PATHOLOGY LABORATORY [address] [place] [address], documented in this encounter Visit Diagnoses Diagnosis [...] documented as of this encounter Care Teams Nursing Program Coordinator Relationship Specialty Start Date End Date Denny Camacho MD [address] [place] [address] PCP - General Family Medicine 02/14/25 documented as of this encounter
--- OUTSIDE RECORDS SUMMARY | 2025-09-06 15:52 | XMS_ITS | Encounter Summary ---
Author Organization [facility] Address [address] [place] [address] Care Team Providers Care Funeral Pre Arrangement Specialist Name Role Phone Denny Camacho MD Primary Care Provider [phone] Encounter Details Date Type Department Care Team (Late st Contact Info) Description 01/28/2021 Community Orders [facility] EpicCare Link [address] [place] [address] Wilbur Daley MD [address] [place] [address] [place] [address] Exposure to SARS virus (Primary Dx) Social [...] of this encounter Results * Due to [place] state law, this organization might not be sharing negative HIV tests. * COVID-19 PCR, ELECTRIC FURNACE OPERATOR/OP/[facility]iva (01/31/2021 8:44 AM EDT) SARS CoV 2 RNA, RT PCR Not Detected Not Detected BANG ZAVALETA 01/31/2021 4:22 PM EDT [facility] Comment:A [...] AM EDT 01/31/2021 9:28 AM EDT Narrative [facility]lex[facility]IPref[facility] LABOR[facility] - 01/31/2021 4:22 PM EDT These tests were developed, validated, and their performance characteristics determined by the Molecular Virology Laboratory at [facility] under CLIA [id number]. They have not been cleared or approved by the U.S. Food and Drug Administration (FDA). FDA Policy for Diagnostic Tests for Coronavirus Disease-2019 during the Public Health Emergency issued January 16, 2020, is followed. Wilbur Daley MD LAB BODY FLUIDS AND STOOLS OR DERABLES Final Result [facility] LAB[facility] [address] [place] [address], documented in this encounter Visit Diagnoses Diagnosis [...] documented as of this encounter Care Teams Funeral Pre Arrangement Specialist Relationship Specialty Start Date End Date Denny Camacho MD [address] [place] [address] PCP - General Family Medicine 02/14/25 documented as of this encounter
--- OUTSIDE RECORDS SUMMARY | 2025-09-06 15:52 | XMS_ITS | Clinical Summary ---
Author Organization [facility] Address [address] [place] [address] Care Team Providers Care Apprentice Pattern Maker Name Role Phone Juan Luis Eduardo MD Primary Care Provider [phone] Allergies Active Allergy Reactions Criticality Noted Date [...] to complete this topic Insurance MEDICAID [facility] FEE FOR SERVICE HMO Care Teams Apprentice Pattern Maker Relationship Specialty Start Date End Date Juan Luis Eduardo MD JUAN LUIS EDUARDO, [address] [address] PCP - General Pediatrics 02/11/22
--- OUTSIDE RECORDS SUMMARY | 2025-09-06 15:52 | XMS_ITS | Encounter Summary ---
Author Organization [facility] Address [address] [place] [address] Care Team Providers Care Cafe Team Member Name Role Phone Denny Camacho MD Primary Care Provider [phone] Encounter Details Date Type Department Care Team (Late st Contact Info) Description 08/24/2020 Orders Only [facility] [address] [place] [address] Wilbur Daley MD [address] [facility] [address] [place] [address] Exposure to SARS-associated coronavirus (Primary Dx) Social [...] of this encounter Results * Due to [place] state law, this organization might not be sharing negative HIV tests. * COVID-19 PCR, ON SITE SERVICES SPECIALIST/OP/[facility]iva (08/24/2020 11:38 AM EDT) SARS CoV 2 RNA, RT PCR Not Detected Not Detected 08/24/2020 8:37 PM EDT [facility] Comment:A Not Detected [...] AM EDT 08/24/2020 12:38 PM EDT Narrative [facility] - 08/24/2020 8:37 PM EDT These tests were developed, validated, and their performance characteristics determined by the Molecular Virology Laboratory at [facility] under CLIA [id number]. They have not been cleared or approved by the U.S. Food and Drug Administration (FDA). FDA Policy for Diagnostic Tests for Coronavirus Disease-2019 during the Public Health Emergency issued January 16, 2020, is followed. us Wilbur Daley MD LAB BODY FLUIDS AND STOOLS OR DERABLES Final Result [facility] [address] [place] [address], documented in this encounter Visit Diagnoses Diagnosis [...] documented as of this encounter Care Teams Cafe Team Member Relationship Specialty Start Date End Date Denny Camacho MD [address] [place] [address] PCP - General Family Medicine 02/14/25 documented as of this encounter
== END 2025-09-06 13:06 | disposition home or self-care (01) ==
LOC: HO.HOSX 13:05
DX: S62.312D Displaced fracture of base of third metacarpal bone, right hand, subsequent encounter for fracture with routine healing (principal); X58.XXXD Exposure to other specified factors, subsequent encounter
CPT/HCPCS: 73130

== ENCOUNTER 2025-09-06 13:11 | Outpatient (AMB) | payer BC, MEDICAID, SELFPAY ==
--- NOTE | 2025-09-06 13:31 | A.OFFVIS_ITS ---
Vital Signs 09/06/25 13:32 Height 6 ft 1 in Weight 185 lb BMI 24.4 Intake Visit Reasons: OV: Right 3rd Metacarpal Fx, DOI: 08/13/25 w/ xray Intake Note: Neil is a 20 year old right hand dominant male who presents today in office for a follow up of his fracture of base of third metacarpal bone of right hand DOI: 08/13/25. On 08/16/25 patient was instructed to kings tape if right hand 3rd and 4th digits together to act as a moving splint and prevent rotation or excessive radial or ulnar deviation of the digit to prevent fracture displacement. He was also placed in a Velcro wrist brace to be worn like a cast except for bathing. Today patient states he has no pain, numbness or tingling. He continues to wear his brace as a cast and only removes it to shower. Allergies nut - unspecified Allergy (Verified 09/06/25 13:35) Anaphylaxis peanut Allergy (Verified 09/06/25 13:35) Anaphylaxis HPI HPI OV: Right 3rd Metacarpal Fx, DOI: 08/13/25 w/ xray: Details: Neil is a 20 year old right hand dominant male who presents today in office for a follow up of his fracture of base of third metacarpal bone of right hand DOI: 08/13/25. On 08/16/25 patient was instructed to kings tape if right hand 3rd and 4th digits together to act as a moving splint and prevent rotation or excessive radial or ulnar deviation of the digit to prevent fracture displacement. He was also placed in a Velcro wrist brace to be worn like a cast except for bathing. Today patient states he has no pain, numbness or tingling. He continues to wear his brace as a cast and only removes it to shower. Overall, patient is very happy with his recovery thus far. [facility] Medical History No pertinent past medical history Social History (Updated 09/06/25 @ 13:36 by CLARA Chapa) Alcohol intake: current Alcohol intake frequency: holidays/special occasions only Patient Tobacco Use Status: Never used Tobacco Substance Use Type: Marijuana Current occupational status: student Current occupation: sports - baseball/ rt hand Review of Systems Const All systems reviewed & are unremarkable except as noted in HPI and below Physical Exam Vital Signs: BMI result Body Mass Index 24.4 Extrem Other: Patient is alert, oriented, and in no acute distress. Neuro: Normal sensation of the tips of all digits of the right hand at this time Vascular: Cap refill brisk Pain: No tenderness to palpation of the dorsal aspect of the right hand over the right 3rd metacarpal base No further Discomfort with range of motion of the right hand ROM: Patient is able to flex and extend all digits of the right hand fully and without difficulty, no rotational deformity noted of the right middle finger Skin: No lacerations or abrasions. General: No ecchymosis, erythema, or evidence of infection. Psych: Appears grossly normal Affect normal Attitude cooperative Results Reviewed Results Reviewed: X-rays obtained in the office today and independently reviewed by me, Aristides Hayward PA-C, demonstrate minimally displaced oblique fracture of the right 3rd metacarpal base with evidence of interval bony healing Assessment & Plan Assessment & Plan (1) Fracture of base of third metacarpal bone of right hand: Code(s): S62.312A - Displaced fracture of base of third metacarpal bone, right hand, initial encounter for closed fracture Category: Medical Plan 1. Right 3rd metacarpal base fracture Date of injury 08/13/2025 Patient is educated about this condition Patient is educated about the typical treatment course Patient is educated he should continue to wear the Velcro wrist splint with daytime activities, should kings tape with most activity, and should continue with 2 lb weight limit in the right hand However, patient is advised that he can remove the Velcro wrist splint while at rest to work on range of motion of the right wrist Patient is educated that it will likely be another 4-6 weeks before we can clear him to return back for baseball activities involving his hand, can return for activity not involving use of the right hand Patient understands this and is amenable to this plan Follow-up in 4 weeks with repeat x-rays for reassessment, sooner with any acute concerns Orders: Orders XR hand RT min 3V 09/06/25 M79.641 - Pain in right hand Coding Level of Care Code Global (58619) Diagnoses Fracture of base of third metacarpal bone of right hand S62.312A
[2025-09-06 13:32] VITALS: BMI 24.4
== END 2025-09-06 13:50 | disposition home or self-care (01) ==
LOC: HO.HOS 13:11
DX: S62.312A Displaced fracture of base of third metacarpal bone, right hand, initial encounter for closed fracture (principal)
CPT/HCPCS: 99024

== ENCOUNTER → 2025-09-06 13:18 | Outpatient (BNV) | payer BC, SELFPAY | PROVIDERS: Visit Provider Radiology Diagnostic Radiology | DX: S62.312D Displaced fracture of base of third metacarpal bone, right hand, subsequent encounter for fracture with routine healing (principal) | CPT/HCPCS: 73130 ==

== ENCOUNTER 2025-10-03 09:44 | Outpatient (REF) | payer BC, SELFPAY ==
--- NOTE | ~2025-10-03 | XR_ITS ---
EXAMINATION: XR HAND, RIGHT CLINICAL INFORMATION: M79.641 - Pain in right hand , follow-up fracture COMPARISON: 09/06/2025 TECHNIQUE: PA, lateral, and oblique views of the right hand. FINDINGS: There is increasing bridging bone across an oblique fracture involving the base of the third metacarpal. There is also increasing periosteal bone density. There has been no interval shift of the fracture fragment. No other changes are evident. XR/XR hand RT min 3V IMPRESSION: Healing fracture involving the base of the third metacarpal, right hand. Electronically signed by: Perry Canales MD 10/03/2025 11:48 AM EST
--- OUTSIDE RECORDS SUMMARY | 2025-10-05 11:16 | XMS_ITS | Encounter Summary ---
Author Organization [facility] Address [address] [place] [address] Care Team Providers Care Business Support Specialist Name Role Phone Denny Camacho MD Primary Care Provider [phone] Encounter Details Date Type Department Care Team (Late st Contact Info) Description 05/06/2024 Community Orders [facility] EpicCare Link [address] [place] [address] Wilbur Daley MD [address] [place] [address] [place] [phone] Chronic right shoulder pain (Primary Dx) Social [...] documented as of this encounter Care Teams Business Support Specialist Relationship Specialty Start Date End Date Denny Camacho MD [address] [place] [address] PCP - General Family Medicine 02/14/25 documented as of this encounter
--- OUTSIDE RECORDS SUMMARY | 2025-10-05 11:16 | XMS_ITS | Encounter Summary ---
Author Organization [facility] Address [address] [place] [address] Care Team Providers Care Senior Construction Estimator Name Role Phone Denny Camacho MD Primary Care Provider [phone] Reason for Referral * Consultation (Routine) - Canceled Specialty Diagnoses / Procedures Referred By Contac t Referred To Contact Hand Surgery Diagnoses Closed nondisplaced fracture of base of third metacarpal bone of right hand, initial encounter Denny Camacho MD [address] [place] [address] Phone: tel: fax: Aristides Hayward [address] [place] [address] [address] [place] [address] Phone: tel: fax: Referral ID Status Reason Start Date Expiration Date Visits Requested Visits Authorized [id number] Canceled Patient Preference 10/04/2025 11/04/2026 6 6 Encounter Details Date Type Department Care Team (Late st Contact Info) Description 10/04/2025 Orders Only [facility] Family Medicine [address] [place] [address] [place] [phone] Modesta Smart CCMA Closed nondisplaced fracture of base of third metacarpal bone of right hand, initial encounter (Primary Dx) Social History Tobacco Use Types Packs/Day Years Used Date Smoking Tobacco: Never Smokeless Tobacco: Never Sex and Gender Information Value Date Recorded Sex Assigned at Male 02/21/2022 8:23 AM EDT Legal Sex Male 8:42 AM EDT Gender Identity Male 02/21/2022 8:23 AM EDT Sexual Orientation Straight 02/21/2022 8: 23 AM EDT documented as of this encounter Plan of Treatment Scheduled Referrals Name Type Priority Associated Diagnoses Orde r Schedule Ambulatory referral to Ortho - All Outpatient Referral Routine Closed nondisplaced fracture of base of third metacarpal bone of right hand, initial encounter Expected: 10/04/2025, Expires: 11/04/2026 documented as of this encounter Visit Diagnoses Diagnosis Closed nondisplaced fracture of base of third metacarpal bone of right hand, initial encounter- Primary documented in this encounter Additional Health Concerns Infection Onset Date Last Indicated Resolved Time Multidrug resistant organisms MRSA 08/02/20172016 documented as of this encounter Care Teams Senior Construction Estimator Relationship Specialty Start Date End Date Denny Camacho MD [address] [place] [address] PCP - General Family Medicine 02/14/25 documented as of this encounter
--- OUTSIDE RECORDS SUMMARY | 2025-10-05 11:16 | XMS_ITS | Encounter Summary ---
Author Organization [facility] Address [address] [place] [address] Care Team Providers Care Power Originator Name Role Phone Denny Camacho MD Primary Care Provider [phone] Encounter Details Date Type Department Care Team (Late st Contact Info) Description 12/02/2021 Community Orders [facility] EpicCare Link [address] [place] [address] Wilbur Daley MD [address] [place] [address] [place] [address] Fever and chills (Primary Dx) Social History [...] Detected GALINDO ZAVALETA 12/03/2021 5:[address] [facility] Comment:A Not [...] RNA, RT PCR Not Detected Not Detected [facility] 12/03/2021 5:56 AM EST [facility] Comment:Negative results do not preclude infection and should not be used as the sole basis for diagnosis, treatment or other patient management decisions. Negative results must be combined with clinical observations, patient history, and/or epidemiological information. RSV RNA, RT PCR Not Detected Not Detected [facility] 12/03/2021 5:56 AM EST [facility] Comment:Negative results do not preclude infection and should not be used as the sole basis for diagnosis, treatment or other patient management decisions. Negative results must be combined with clinical observations, patient history, and/or epidemiological information. Saliva Mouth region structure / Unknown Non-Blood Collection / Unknown 12/02/2021 3:12 PM EST 12/02/2021 5:03 PM EST [facility] - 12/03/2021 5:56 AM EST These tests were developed, validated, and their performance characteristics determined by the Molecular Virology Laboratory at [facility] under CLIA [id number]. They have not been cleared or approved by the U.S. Food and Drug Administration (FDA). FDA Policy for Diagnostic Tests for Coronavirus Disease-2019 during the Public Health Emergency issued January 16, 2020, is followed. us Wilbur Daley MD LAB BODY FLUIDS AND STOOLS OR DERABLES Final Result [facility] [address] [place] [address], documented in this encounter Visit Diagnoses Diagnosis [...] documented as of this encounter Care Teams Power Originator Relationship Specialty Start Date End Date Denny Camacho MD [address] [place] [address] PCP - General Family Medicine 02/14/25 documented as of this encounter
--- OUTSIDE RECORDS SUMMARY | 2025-10-05 11:16 | XMS_ITS | Clinical Summary ---
Author Organization [facility] Address [address] [place] [address] Care Team Providers Care Patient Care Manager Name Role Phone Denny Camacho MD Primary Care Provider [phone] Allergies Active Allergy Reactions Criticality Noted Date [...] hernia 09/09/2009 Inguinal hernia 09/09/2009 Asthma 09/09/2009 Encounters Date Type Department Care Team Description 10/04/2025 Orders Only [address] [place] [address] Modesta Smart CCMA Closed nondisplaced fracture of base of third metacarpal bone of right hand, initial encounter (Primary Dx) from Last 3 Months Immunizations Immunization Administration Dates Next Due Hepatitis [...] 2004 Hepatitis C Screening 2004 1 Week [facility] 2004 1 Month [facility] 2004 2 Month [facility] 2004 4 Month [facility] 2004 6 Month [facility] 2004 9 Month [facility] 02/03/2005 MMR Vaccines (1 of 1 - Stand roseanne series) 2005 12 Month [facility] 05/16/2005 15 Month [facility] 08/02/2005 18 Month [facility] 10/31/2005 24 Month [facility] 04/29/2006 30 Month [facility] 09/02/2006 3 to 21 Year [facility] 2007 Well Child Check 2007 DTaP,Tdap,and Td [...] 08/03/2020, 09/09/2019, Additional history exists COVID-19 Vaccine (4 - 2024-2 6 season) 2025 05/19/2022, 06/30/2021, 06/09/2021 HPV Vaccines Completed 02/02/2018, 01/29/2017 Meningococcal Vaccine Completed 08/03/2020, 016 Additional Health Concerns Infection Onset Date Last Indicated Multidrug resistant organisms MRSA 08/02/2017 08/02/2017 Insurance [facility] HMO/POS [address] [place], [place] [address] [address] [address] HMO/POS Member Subscriber Plan / Payer (Ef fective 2016-Present) Name:Neil Kaminski Relation to Subscriber:Child Name:Ti Kaminski Date of :1968 (Home) Address: [address] [place] [address] Payer ID:[id number] (NAIC) Type:Not on file Address: [id number] Care Teams Patient Care Manager Relationship Specialty Start Date End Date Denny Camacho MD [address] [place] [address] PCP - General Family Medicine 02/14/25
--- OUTSIDE RECORDS SUMMARY | 2025-10-05 11:16 | XMS_ITS | Encounter Summary ---
Author Organization [facility] Address [address] [place] [address] Care Team Providers Care Locomotive Observer Name Role Phone Denny Camacho MD Primary Care Provider [phone] Encounter Details Date Type Department Care Team (Late st Contact Info) Description 09/23/2019 Community Orders [facility] EpicCare Link [address] [place] [address] Wilbur Daley MD [address] [place] [address] [place] [address] Chris-Schlatter's disease of both knees (Primary Dx) [...] documented as of this encounter Care Teams Locomotive Observer Relationship Specialty Start Date End Date Denny Camacho MD [address] [place] [address] PCP - General Family Medicine 02/14/25 documented as of this encounter
--- OUTSIDE RECORDS SUMMARY | 2025-10-05 11:16 | XMS_ITS | Clinical Summary ---
Author Organization [facility] Address [address] [place] [address] Care Team Providers Care Assault Boat Coxswain Name Role Phone Juan Luis Eduardo MD Primary Care Provider Allergies Active Allergy Reactions Criticality Noted Date [...] age to complete this topic Insurance MEDICAID [employer] H[employer] Care Teams Assault Boat Coxswain Relationship Specialty Start Date End Date Juan Luis Eduardo MD JUAN LUIS EDUARDO, [address] [address] PCP - General Pediatrics 02/11/22
--- OUTSIDE RECORDS SUMMARY | 2025-10-05 11:16 | XMS_ITS | Encounter Summary ---
Author Organization [facility] Address [address] [place] [address] Care Team Providers Care Senior Tableau Developer Name Role Phone Denny Camacho MD Primary Care Provider [phone] Encounter Details Date Type Department Care Team (Late st Contact Info) Description 08/24/2020 Orders Only [facility] [address] [place] [address] Wilbur Daley MD [address] [facility] [address] [place] [address] Exposure to SARS-associated coronavirus (Primary Dx) Social [...] sharing negative HIV tests. * COVID-19 PCR, TREER/OP/[facility] (08/24/2020 11:38 AM EDT) SARS CoV 2 RNA, RT PCR Not Detected Not Detected 08/24/2020 8:37 PM EDT [facility] Comment:A Not Detected [...] AM EDT 08/24/2020 12:38 PM EDT Narrative [facility] - 08/24/2020 8:37 PM EDT These tests were developed, validated, and their performance characteristics determined by the Molecular Virology Laboratory at [facility] under CLIA [id number]. They have not been cleared or approved by the U.S. Food and Drug Administration (FDA). FDA Policy for Diagnostic Tests for Coronavirus Disease-2019 during the Public Health Emergency issued January 16, 2020, is followed. us Wilbur Daley MD LAB BODY FLUIDS AND STOOLS OR DERABLES Final Result [facility] [address] [place] [address], documented in this encounter Visit Diagnoses Diagnosis [...] as of this encounter Care Teams Senior Tableau Developer Relationship Specialty Start Date End Date Denny Camacho MD [address] [place] [address] PCP - General Family Medicine 02/14/25 documented as of this encounter
--- OUTSIDE RECORDS SUMMARY | 2025-10-05 11:16 | XMS_ITS | Encounter Summary ---
Author Organization [facility] Address [address] [place] [address] Care Team Providers Care Sheriff'S Sergeant Name Role Phone Denny Camacho MD Primary Care Provider [phone] Encounter Details Date Type Department Care Team (Late st Contact Info) Description 01/28/2021 Community Orders [facility] EpicCare Link [address] [place] [address] Wilbur Daley MD [address] [place] [address] [place] [address] Exposure to SARS virus (Primary Dx) Social [...] sharing negative HIV tests. * COVID-19 PCR, LOAN EXAMINER/OP/[facility]iva (01/31/2021 8:44 AM EDT) SARS CoV 2 RNA, RT PCR Not Detected Not Detected BANG BANDA STUDKENNETH 01/31/2021 4:22 PM EDT [facility] Comment:A [...] AM EDT 01/31/2021 9:28 AM EDT Narrative [facility] - 01/31/2021 4:22 PM EDT These tests were developed, validated, and their performance characteristics determined by the Molecular Virology Laboratory at [facility] under CLIA [id number]. They have not been cleared or approved by the U.S. Food and Drug Administration (FDA). FDA Policy for Diagnostic Tests for Coronavirus Disease-2019 during the Public Health Emergency issued January 16, 2020, is followed. Wilbur Daley MD LAB BODY FLUIDS AND STOOLS OR DERABLES Final Result [facility] [address] [place] [address], documented in this encounter Visit Diagnoses Diagnosis [...] documented as of this encounter Care Teams Sheriff'S Sergeant Relationship Specialty Start Date End Date Denny Camacho MD [address] [place] [address] PCP - General Family Medicine 02/14/25 documented as of this encounter
--- OUTSIDE RECORDS SUMMARY | 2025-10-05 11:16 | XMS_ITS | Encounter Summary ---
Author Organization [facility] Address [address] [place] [address] Care Team Providers Care Certified Nurse Midwife Name Role Phone Denny Camacho MD Primary Care Provider [phone] Encounter Details Date Type Department Care Team (Late st Contact Info) Description 10/29/2021 Community Orders [facility] EpicCare Link [address] [place] [address] Wilbur Daley MD 299 [facility] [address] [place] [address] Close exposure to COVID-19 virus (Primary Dx) [...] this encounter Results * Due to [place] state law, this organization might not be sharing negative HIV tests. * COVID-19 PCR (Symptomatic), LABORER TREE TAPPING/OP/[facility]iva (10/29/2021 10:29 AM EST) SARS CoV 2 RNA, RT PCR Not Detected Not Detected THERMOFIS HER QUANT STUDIO 10/30/2021 6:43 AM EST [facility] Comment:A Not [...] EST 10/29/2021 12:21 PM EST Narrative [facility] LAB[facility] - 10/30/2021 6:43 AM EST These tests were developed, validated, and their performance characteristics determined by the Molecular Virology Laboratory at [facility] under CLIA [id number]. They have not been cleared or approved by the U.S. Food and Drug Administration (FDA). FDA Policy for Diagnostic Tests for Coronavirus Disease-2019 during the Public Health Emergency issued January 16, 2020, is followed. Wilbur Daley MD LAB BODY FLUIDS AND STOOLS OR DERABLES Final Result [facility] [address] [place] [id number], documented in this encounter Visit Diagnoses Diagnosis [...] documented as of this encounter Care Teams Certified Nurse Midwife Relationship Specialty Start Date End Date Denny Camacho MD [address] [place] [address] PCP - General Family Medicine 02/14/25 documented as of this encounter
--- OUTSIDE RECORDS SUMMARY | 2025-10-05 11:16 | XMS_ITS | Encounter Summary ---
Author Organization [facility] Address [address] [place] [address] Care Team Providers Care Combination Saw Operator Name Role Phone Denny Camacho MD Primary Care Provider [phone] Encounter Details Date Type Department Care Team (Late st Contact Info) Description 02/12/2022 Community Orders [facility] EpicCare Link [address] [place] [address] Wilbur Daley MD [address] [place] [address] [place] [address] Fracture, finger, multiple sites (Primary Dx) Social [...] documented as of this encounter Care Teams Combination Saw Operator Relationship Specialty Start Date End Date Denny Camacho MD [address] [place] [address] PCP - General Family Medicine 02/14/25 documented as of this encounter
== END 2025-10-03 09:45 | disposition home or self-care (01) ==
LOC: HO.HOSX 09:44
DX: S62.312D Displaced fracture of base of third metacarpal bone, right hand, subsequent encounter for fracture with routine healing (principal); X58.XXXD Exposure to other specified factors, subsequent encounter
CPT/HCPCS: 73130

== ENCOUNTER → 2025-10-03 11:30 | Outpatient (BNV) | payer BC, SELFPAY | PROVIDERS: Visit Provider Radiology Diagnostic Radiology | DX: S62.312D Displaced fracture of base of third metacarpal bone, right hand, subsequent encounter for fracture with routine healing (principal) | CPT/HCPCS: 73130 ==

== ENCOUNTER 2025-10-03 11:31 | Outpatient (AMB) | payer BC, SELFPAY ==
[2025-10-03 11:39] VITALS: BMI 24.4
--- NOTE | 2025-10-03 11:39 | MHC.OFFVIS ---
Vital Signs 10/03/25 11:39 Height 6 ft 1 in Weight 185 lb BMI 24.4 Intake Visit Reasons: OV: Right 3rd Metacarpal Fx, DOI: 08/13/25 w/ xray Intake Note: marleny is a 20 year old right hand dominant male who presents today for a Follow Up visit status post Right 3rd Metacarpal Fracture, DOI: 08/13/25. At their last visit, he was advise to continue wearing his Velcro wrist brace with daytime activities and using kings tape with most activities. He was further advised to continue with a 2 lb weight limit, removing his brace to work on ROM. Today, patient reports he is doing well. He denies numbness, tinglig, figner locking, or pain. Allergies nut - unspecified Allergy (Verified 09/06/25 13:35) Anaphylaxis peanut Allergy (Verified 09/06/25 13:35) Anaphylaxis HPI HPI OV: Right 3rd Metacarpal Fx, DOI: 08/13/25 w/ xray: Details: marleny is a 20 year old right hand dominant male who presents today for a Follow Up visit status post Right 3rd Metacarpal Fracture, DOI: 08/13/25. At their last visit, he was advise to continue wearing his Velcro wrist brace with daytime activities and using kings tape with most activities. He was further advised to continue with a 2 lb weight limit, removing his brace to work on ROM. Today, patient reports he is doing well. He denies numbness, tinglig, figner locking, or pain. Patient inquires when he will get back to baseball activities. [facility] Medical History No pertinent past medical history Social History (Updated 09/06/25 @ 13:36 by CLARA Chapa) Alcohol intake: current Alcohol intake frequency: holidays/special occasions only Patient Tobacco Use Status: Never used Tobacco Substance Use Type: Marijuana Current occupational status: student Current occupation: sports - baseball/ rt hand Review of Systems Const All systems reviewed & are unremarkable except as noted in HPI and below Physical Exam Vital Signs: BMI result Body Mass Index 24.4 Extrem Other: Patient is alert, oriented, and in no acute distress. Neuro: Normal sensation of the tips of all digits of the right hand at this time Vascular: Cap refill brisk Pain: No tenderness to palpation of the dorsal aspect of the right hand over the right 3rd metacarpal base No further Discomfort with range of motion of the right hand ROM: Patient is able to flex and extend all digits of the right hand fully and without difficulty, no rotational deformity noted of the right middle finger Skin: No lacerations or abrasions. General: No ecchymosis, erythema, or evidence of infection. Psych: Appears grossly normal Affect normal Attitude cooperative Results Reviewed Results Reviewed: X-rays obtained in the office today and independently reviewed by me, Aristides Hayward PA-C, demonstrate minimally displaced oblique fracture of the right 3rd metacarpal base with evidence of interval bony healing Assessment & Plan Assessment & Plan (1) Fracture of base of third metacarpal bone of right hand: Code(s): S62.312A - Displaced fracture of base of third metacarpal bone, right hand, initial encounter for closed fracture Category: Medical Plan 1. Right 3rd metacarpal base fracture Date of injury 08/13/2025 Patient is educated about this condition Patient is educated about the typical treatment course Patient is educated he should continue to wear the Velcro wrist splint with high-risk daytime activities, can remove to work on range of motion May increase to 5 lb weight limit over the next 2 weeks, 10 lb over the 2 weeks following, should not increase beyond that before next follow-up However, patient is advised that he can remove the Velcro wrist splint while at rest to work on range of motion of the right wrist Patient may begin gentle throwing and non hand related drills for baseball, should not be performing any high impact activities or high velocity throwing until after next follow-up Patient is educated that it will likely be another 4weeks before we can clear him to return back for baseball activities involving his hand, can return for activity not involving use of the right hand Patient understands this and is amenable to this plan Follow-up in 4 weeks with repeat x-rays for reassessment, sooner with any acute concerns Orders: Orders XR hand RT min 3V Today M79.641 - Pain in right hand Coding Level of Care Code Global (26353) Diagnoses Fracture of base of third metacarpal bone of right hand S62.312A
--- OUTSIDE RECORDS SUMMARY | 2025-10-03 13:45 | XMS_ITS | Encounter Summary ---
Author Organization [facility] Address [address] [place] [address] Care Team Providers Care Tdp Displays Analyst Name Role Phone Denny Camacho MD Primary Care Provider [phone] Encounter Details Date Type Department Care Team (Late st Contact Info) Description 08/24/2020 Orders Only [facility] [address] [place] [address] Wilbur Daley MD 299 [facility] [address] [place] [address] Exposure to SARS-associated coronavirus (Primary Dx) Social [...] of this encounter Results * Due to [place] state law, this organization might not be sharing negative HIV tests. * COVID-19 PCR, SUPERVISOR ENGINES ROAD/OP/Saliva (08/24/2020 11:38 AM EDT) SARS CoV 2 RNA, RT PCR Not Detected Not Detected 08/24/2020 8:37 PM EDT [facility] Comment:A Not Detected [...] AM EDT 08/24/2020 12:38 PM EDT Narrative [facility] - 08/24/2020 8:37 PM EDT These tests were developed, validated, and their performance characteristics determined by the Molecular Virology Laboratory at [facility] under CLIA [id number]. They have not been cleared or approved by the U.S. Food and Drug Administration (FDA). FDA Policy for Diagnostic Tests for Coronavirus Disease-2019 during the Public Health Emergency issued January 16, 2020, is followed. us Wilbur Daley MD LAB BODY FLUIDS AND STOOLS OR DERABLES Final Result [facility] [address] [place] [address], documented in this encounter Visit Diagnoses Diagnosis [...] documented as of this encounter Care Teams Tdp Displays Analyst Relationship Specialty Start Date End Date Denny Camacho MD [address] [place] [address] PCP - General Family Medicine 02/14/25 documented as of this encounter
--- OUTSIDE RECORDS SUMMARY | 2025-10-03 13:45 | XMS_ITS | Encounter Summary ---
Author Organization [facility] Address [address] [place] [address] Care Team Providers Care Workflow Developer Name Role Phone Denny Camacho MD Primary Care Provider [phone] Encounter Details Date Type Department Care Team (Late st Contact Info) Description 01/28/[address] [facility] Link [address] [place] [address] Wilbur Daley MD [address] [place] [address] [place] [address] Exposure to SARS virus (Primary Dx) Social [...] sharing negative HIV tests. * COVID-19 PCR, ROTARY VENEER MACHINE OPERATOR/OP/[facility]iva (01/31/2021 8:44 AM EDT) SARS CoV 2 RNA, RT PCR Not Detected Not Detected BANG ZAVALETA 01/31/2021 4:22 PM EDT [facility] Comment:A [...] AM EDT 01/31/2021 9:28 AM EDT Narrative [facility] - 01/31/2021 4:22 PM EDT These tests were developed, validated, and their performance characteristics determined by the Molecular Virology Laboratory at [facility] under CLIA [id number]. They have not been cleared or approved by the U.S. Food and Drug Administration (FDA). FDA Policy for Diagnostic Tests for Coronavirus Disease-2019 during the Public Health Emergency issued January 16, 2020, is followed. Wilbur Daley MD LAB BODY FLUIDS AND STOOLS OR DERABLES Final Result [facility] [address] [place] [address], documented in this encounter Visit Diagnoses Diagnosis [...] documented as of this encounter Care Teams Workflow Developer Relationship Specialty Start Date End Date Denny Camacho MD [address] [place] [address] PCP - General Family Medicine 02/14/25 documented as of this encounter
--- OUTSIDE RECORDS SUMMARY | 2025-10-03 13:45 | XMS_ITS | Encounter Summary ---
Author Organization [facility] Address [address] [place] [address] Care Team Providers Care Wick And Base Assembler Name Role Phone Denny Camacho MD Primary Care Provider [phone] Encounter Details Date Type Department Care Team (Late st Contact Info) Description 02/12/2022 Community Orders [facility] Link [address] [place] [address] Wilbur Daley MD [address] [place] [address] [place] [address] Fracture, finger, multiple sites (Primary Dx) Social [...] documented as of this encounter Care Teams Wick And Base Assembler Relationship Specialty Start Date End Date Denny Camacho MD [address] [place] [address] PCP - General Family Medicine 02/14/25 documented as of this encounter
--- OUTSIDE RECORDS SUMMARY | 2025-10-03 13:45 | XMS_ITS | Encounter Summary ---
Author Organization [facility] Address [address] [place] [address] Care Team Providers Care Boring Machine Operator Name Role Phone Denny Camacho MD Primary Care Provider [phone] Encounter Details Date Type Department Care Team (Late st Contact Info) Description 05/06/2024 Community Orders [facility] Link [address] [place] [address] Wilbur Daley MD [address] [place] [address] [place] [address] Chronic right shoulder pain (Primary Dx) Social [...] documented as of this encounter Care Teams Boring Machine Operator Relationship Specialty Start Date End Date Denny Camacho MD [address] [place] [address] PCP - General Family Medicine 02/14/25 documented as of this encounter
--- OUTSIDE RECORDS SUMMARY | 2025-10-03 13:45 | XMS_ITS | Encounter Summary ---
Author Organization [facility] Address [address] [place] [address] Care Team Providers Care Ship Engines Operating Engineer Name Role Phone Denny Camacho MD Primary Care Provider [phone] Encounter Details Date Type Department Care Team (Late st Contact Info) Description 09/23/2019 Community Orders [facility] Link [address] [place] [address] Wilbur Daley MD [address] [place] [address] [place] [address] Chris-Schlatter's disease of both knees (Primary Dx) [...] documented as of this encounter Care Teams Ship Engines Operating Engineer Relationship Specialty Start Date End Date Denny Camacho MD [address] [place] [address] PCP - General Family Medicine 02/14/25 documented as of this encounter
--- OUTSIDE RECORDS SUMMARY | 2025-10-03 13:45 | XMS_ITS | Clinical Summary ---
Author Organization [facility] Address [address] [place] [address] Care Team Providers Care Bilingual Sales Assistant Name Role Phone Juan Luis Eduardo MD Primary Care Provider [phone] Allergies Active Allergy Reactions Criticality Noted Date [...] age to complete this topic Insurance MEDICAID [facility] FEE FOR SERVICE HMO Care Teams Bilingual Sales Assistant Relationship Specialty Start Date End Date Juan Luis Eduardo MD JUAN LUIS EDUARDO, [address] [address] PCP - General Pediatrics 02/11/22
--- OUTSIDE RECORDS SUMMARY | 2025-10-03 13:45 | XMS_ITS | Encounter Summary ---
Author Organization [facility] Address [address] [place] [address] Care Team Providers Care Licensing Specialist Name Role Phone Denny Camacho MD Primary Care Provider [phone] Encounter Details Date Type Department Care Team (Late st Contact Info) Description 12/02/2021 Community Orders [facility] Link [address] [place] [address] Wilbur Daley MD [address] [place] [address] [place] [address] Fever and chills (Primary Dx) Social History [...] this encounter Results * Due to [place] state law, this organization might not be sharing negative HIV tests. * COVID-19, Flu A/B & RSV RNA PCR, Symptomatic (12/02/2021 3:12 PM EST) SARS CoV 2 RNA, RT PCR Not Detected Not Detected GALINDO ZAVALETA 12/03/2021 5:56 AM EST [facility] Comment:A [...] RNA, RT PCR Not Detected Not Detected BensataIO 12/03/2021 5:56 AM EST [facility] Comment:Negative results do not preclude infection and should not be used as the sole basis for diagnosis, treatment or other patient management decisions. Negative results must be combined with clinical observations, patient history, and/or epidemiological information. RSV RNA, RT PCR Not Detected Not Detected BensataIO 12/03/2021 5:56 AM EST [facility] Comment:Negative results do not preclude infection and should not be used as the sole basis for diagnosis, treatment or other patient management decisions. Negative results must be combined with clinical observations, patient history, and/or epidemiological information. Saliva Mouth region structure / Unknown Non-Blood Collection / Unknown 12/02/2021 3:12 PM EST 12/02/2021 5:03 PM EST [facility] - 12/03/2021 5:56 AM EST These tests were developed, validated, and their performance characteristics determined by the Molecular Virology Laboratory at [facility] under CLIA [id number]. They have not been cleared or approved by the U.S. Food and Drug Administration (FDA). FDA Policy for Diagnostic Tests for Coronavirus Disease-2019 during the Public Health Emergency issued January 16, 2020, is followed. us Wilbur Daley MD LAB BODY FLUIDS AND STOOLS OR DERABLES Final Result [email or web address] [address] [place] [address], documented in this encounter Visit Diagnoses Diagnosis [...] documented as of this encounter Care Teams Licensing Specialist Relationship Specialty Start Date End Date Denny Camacho MD [address] [place] [address] PCP - General Family Medicine 02/14/25 documented as of this encounter
--- OUTSIDE RECORDS SUMMARY | 2025-10-03 13:45 | XMS_ITS | Encounter Summary ---
Author Organization [facility] Address [address] [place] [address] Care Team Providers Care Lineman Name Role Phone Denny Camacho MD Primary Care Provider [phone] Encounter Details Date Type Department Care Team (Late st Contact Info) Description 10/29/2021 Community Orders [facility] Link [address] [place] [address] Wilbur Daley MD 299 [facility] [address] [place] [address] Close exposure to COVID-19 virus (Primary Dx) [...] negative HIV tests. * COVID-19 PCR (Symptomatic), BONDING AGENT/OP/[facility]iva (10/29/2021 10:29 AM EST) SARS CoV 2 RNA, RT PCR Not Detected Not Detected THERMOFIS HER QUANT STUDIO 10/30/2021 6:43 AM EST [facility] Comment:A Not [...] AM EST 10/29/2021 12:21 PM EST Narrative [facility] - 10/30/2021 6:43 AM EST These tests were developed, validated, and their performance characteristics determined by the Molecular Virology Laboratory at [facility] under CLIA [id number]. They have not been cleared or approved by the U.S. Food and Drug Administration (FDA). FDA Policy for Diagnostic Tests for Coronavirus Disease-2019 during the Public Health Emergency issued January 16, 2020, is followed. Wilbur Daley MD LAB BODY FLUIDS AND STOOLS OR DERABLES Final Result [facility] [address] [place] [id number], documented in this encounter Visit Diagnoses Diagnosis [...] documented as of this encounter Care Teams Lineman Relationship Specialty Start Date End Date Denny Camacho MD [address] [place] [address] PCP - General Family Medicine 02/14/25 documented as of this encounter
--- OUTSIDE RECORDS SUMMARY | 2025-10-03 13:45 | XMS_ITS | Clinical Summary ---
Author Organization [facility] Address [address] [place] [address] Care Team Providers Care Signals Officer Name Role Phone Denny Caamcho MD Primary Care Provider [phone] Allergies Active Allergy Reactions Criticality Noted Date [...] 2004 Hepatitis C Screening 2004 1 Week [facility] 2004 1 Month [facility] 2004 2 Month [facility] 2004 4 Month [facility] 2004 6 Month [facility] 2004 9 Month [facility] 02/03/2005 MMR Vaccines (1 of 1 - Stand roseanne series) 2005 12 Month [facility] 05/16/2005 15 Month [facility] 08/02/2005 18 Month [facility] 10/31/2005 24 Month [facility] 04/29/2006 30 Month [facility] 09/02/2006 3 to 21 Year [facility] 2007 Well Child Check 2007 DTaP,Tdap,and [...] Health Mona ual Screening 11/02/2024 Influenza Vaccine (#1) 2025 , 08/03/2020, 09/09/2019, Additional history exists COVID-19 Vaccine (2024-2 6 season) 2025 05/19/2022, 06/30/2021, 06/09/2021 HPV Vaccines Completed 02/02/2018, 01/29/2017 Meningococcal Vaccine Completed 08/03/2020, 016 Additional Health Concerns Infection Onset Date Last Indicated Multidrug resistant organisms MRSA 08/02/2017 08/02/2017 [place] [address] [facility] HMO/POS [facility] [place] [address] Care Teams Signals Officer Relationship Specialty Start Date End Date Denny Camacho MD [address] [place] [address] PCP - General Family Medicine 02/14/25
== END 2025-10-03 11:52 | disposition home or self-care (01) ==
LOC: HO.HOS 11:32
DX: S62.312A Displaced fracture of base of third metacarpal bone, right hand, initial encounter for closed fracture (principal)
CPT/HCPCS: 99213

== ENCOUNTER 2025-11-01 13:25 | Outpatient (AMB) | payer BC, SELFPAY ==
[2025-11-01 13:46] VITALS: BMI 24.4
--- NOTE | 2025-11-01 13:46 | MHC.OFFVIS ---
Vital Signs 11/01/25 13:46 Height 6 ft 1 in Weight 185 lb BMI 24.4 Intake Visit Reasons: OV: Right 3rd Metacarpal Fx, DOI: 08/13/25 Intake Note: Neil is a 20 year old right hand dominant male who presents today with his father Ti for a Follow Up visit status post Right 3rd Metacarpal Fracture, DOI: 08/13/25. At his last visit he was instructed to continue use to a velcro wrist splint and reach a weight restriction of not more than 10lbs. Today states he has no pain, states he is doing well and has no complaints. Denies numbness or tingling in fingers. Allergies nut - unspecified Allergy (Verified 11/01/25 13:48) Anaphylaxis peanut Allergy (Verified 11/01/25 13:48) Anaphylaxis HPI HPI OV: Right 3rd Metacarpal Fx, DOI: 08/13/25: Details: Neil is a 20 year old right hand dominant male who presents today with his father Ti for a Follow Up visit status post Right 3rd Metacarpal Fracture, DOI: 08/13/25. At his last visit he was instructed to continue use to a velcro wrist splint and reach a weight restriction of not more than 10lbs. Today states he has no pain, states he is doing well and has no complaints. Denies numbness or tingling in fingers. Patient has returned to light baseball activities. Patient inquires whether he will be able to return to full activities. [facility] Medical History No pertinent past medical history Social History Alcohol intake: current Alcohol intake frequency: holidays/special occasions only Patient Tobacco Use Status: Never used Tobacco Substance Use Type: Marijuana Current occupational status: student Current occupation: sports - baseball/ rt hand Review of Systems Const All systems reviewed & are unremarkable except as noted in HPI and below Physical Exam Vital Signs: BMI result Body Mass Index 24.4 Extrem Other: Patient is alert, oriented, and in no acute distress. Neuro: Normal sensation of the tips of all digits of the right hand at this time Vascular: Cap refill brisk Pain: No tenderness to palpation of the dorsal aspect of the right hand over the right 3rd metacarpal base No further Discomfort with range of motion of the right hand ROM: Patient is able to flex and extend all digits of the right hand fully and without difficulty, no rotational deformity noted of the right middle finger Skin: No lacerations or abrasions. General: No ecchymosis, erythema, or evidence of infection. Psych: Appears grossly normal Affect normal Attitude cooperative Assessment & Plan Assessment & Plan (1) Fracture of base of third metacarpal bone of right hand: Code(s): S62.312A - Displaced fracture of base of third metacarpal bone, right hand, initial encounter for closed fracture Category: Medical Plan 1. Right 3rd metacarpal base fracture Date of injury 08/13/2025 Patient is educated about this condition Patient is educated about the typical treatment course Patient is educated he should continue to wear the Velcro wrist splint with high-risk daytime activities, can remove to work on range of motion May increase to full normal lifting over the next 3-4 weeks I do not feel that any splinting is necessary at this time Patient may begin gentle throwing and non hand related drills for baseball, can increase to full normal baseball activities over the next 3-4 weeks Patient understands this and is amenable to this plan Follow-up as needed with any acute concerns Coding Level of Care Code Global (62082) Diagnoses Fracture of base of third metacarpal bone of right hand S62.312A
--- OUTSIDE RECORDS SUMMARY | 2025-11-01 14:50 | XMS_ITS | Encounter Summary ---
Author Organization [facility] Address [address] [place] [address] Care Team Providers Care Agricultural Service Worker Name Role Phone Denny Camacho MD Primary Care Provider [phone] Encounter Details Date Type Department Care Team (Late st Contact Info) Description 08/24/2020 Orders Only [facility] [address] [place] [address] Wilbur Daley MD [address] [place] [address] [place] [address] Exposure to SARS-associated coronavirus (Primary Dx) Social [...] as of this encounter Plan of Treatment Upcoming Encounters Date Type Department Care Team (Late st Contact Info) Description 11/15/2025 3:45 PM EST Office Visit [facility] Medicine [address] [facility] [address] [place] [address] Denny Camacho MD [address] [place] [address] documented as of this encounter Results * Due to [place] state law, this organization might not be sharing negative HIV tests. * COVID-19 PCR, MEDICAL INSURANCE BILLER/OP/[facility]iva (08/24/2020 11:38 AM EDT) SARS CoV 2 RNA, RT PCR Not Detected Not Detected 08/24/2020 8:37 PM EDT [facility] Comment:A Not Detected (Nega [...] AM EDT 08/24/2020 12:38 PM EDT Narrative [facility] - 08/24/2020 8:37 PM EDT These tests were developed, validated, and their performance characteristics determined by the Molecular Virology Laboratory at [facility] under CLIA [id number]. They have not been cleared or approved by the U.S. Food and Drug Administration (FDA). FDA Policy for Diagnostic Tests for Coronavirus Disease-2019 during the Public Health Emergency issued January 16, 2020, is followed. us Wilbur Daley MD LAB BODY FLUIDS AND STOOLS OR DERABLES Final Result [facility] [address] [place] [address], documented in this encounter Visit Diagnoses Diagnosis [...] documented as of this encounter Care Teams Agricultural Service Worker Relationship Specialty Start Date End Date Denny Camacho MD [address] [place] [address] PCP - General Family Medicine 02/14/25 documented as of this encounter
--- OUTSIDE RECORDS SUMMARY | 2025-11-01 14:50 | XMS_ITS | Encounter Summary ---
Author Organization [facility] Address [address] [place] [address] Care Team Providers Care Furniture Upholsterer Apprentice Name Role Phone Denny Camacho MD Primary Care Provider [phone] Encounter Details Date Type Department Care Team (Late st Contact Info) Description 05/06/[address] 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
--- OUTSIDE RECORDS SUMMARY | 2025-11-01 14:50 | XMS_ITS | Encounter Summary ---
Author Organization [facility] Address [address] [place] [address] Care Team Providers Care Chief Nurse Anesthetist Name Role Phone Denny Camacho MD Primary Care Provider [phone] Encounter Details Date Type Department Care Team (Late st Contact Info) Description 10/29/2021 Community Orders [facility] EpicCare Link [address] [place] [address] Wilbur Daley MD [address] [place] [address] [place] [phone] Close exposure to COVID-19 virus (Primary Dx) [...] Description 11/15/2025 3:45 PM EST Office Visit [facility] Medicine [address] [facility] [address] [place] [address] Denny Camacho MD [address] [place] [address] documented as of this encounter Results * Due to [place] state law, this organization might not be sharing negative HIV tests. * COVID-19 PCR (Symptomatic), CHANGE DIRECTOR/OP/[facility] (10/29/2021 10:29 AM EST) SARS CoV 2 RNA, RT PCR Not Detected Not Detected [facility] 10/30/2021 6:43 AM EST [facility] Comment:A Not Detected (Nega [...] EST 10/29/2021 12:21 PM EST Narrative [facility] - 10/30/2021 6:43 AM EST These tests were developed, validated, and their performance characteristics determined by the Molecular Virology Laboratory at [facility] under CLIA [id number]. They have not been cleared or approved by the U.S. Food and Drug Administration (FDA). FDA Policy for Diagnostic Tests for Coronavirus Disease-2019 during the Public Health Emergency issued January 16, 2020, is followed. us Wilbur Daley MD LAB BODY FLUIDS AND STOOLS OR DERABLES Final Result [facility] CLINICAL PATHOLOGY LABORATORY [address] [place] [address], documented in this encounter Visit Diagnoses Diagnosis Close exposure to COVID-19 virus- Primary documented in this encounter Additional Health Concerns Infection Onset Date Last Indicated Resolved Time Multidrug resistant organisms MRSA 08/02/20172016 COVID-19 - Suspected infection 10/29/2021 10/29/2021 10/30/2021 6:43 AM EST R/O Respiratory Virus Infection 12/02/2021 2 12/03/2021 5:56 AM EST R/O Influenza 12/02/2021 12/02/2021 12/03/2021 5:5 6 AM EST COVID-19 - Suspected infection 12/02/2021 12/02/2021 12/03/2021 5:56 AM EST documented as of this encounter Care Teams Chief Nurse Anesthetist Relationship Specialty Start Date End Date Denny Camacho MD [address] [place] [address] PCP - General Family Medicine 02/14/25 documented as of this encounter
--- OUTSIDE RECORDS SUMMARY | 2025-11-01 14:50 | XMS_ITS | Encounter Summary ---
Author Organization [facility] Address [address] [place] [address] Care Team Providers Care Service Captain Name Role Phone Denny Camacho MD Primary Care Provider [phone] Encounter Details Date Type Department Care Team (Late st Contact Info) Description 02/12/2022 Community Orders [facility] EpicCare Link [address] [place] [address] Wilbur Daley MD [address] [place] [address] Fracture, finger, multiple sites (Primary Dx) Social [...] Description 11/15/2025 3:45 PM EST Office Visit [facility] Medicine 52 [facility] [address] [place] [phone] Denny Camacho MD [address] [place] [address] documented as of this encounter Visit Diagnoses Diagnosis Fracture, finger, multiple sites- Primary Closed fracture of multiple sites of phalanx or phalanges of hand documented in this encounter Additional Health Concerns Infection Onset Date Last Indicated Resolved Time 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
--- OUTSIDE RECORDS SUMMARY | 2025-11-01 14:50 | XMS_ITS | Encounter Summary ---
Author Organization [facility] Address [address] [place] [address] Care Team Providers Care Atg Java Developer Name Role Phone Denny Camacho MD Primary Care Provider [phone] Encounter Details Date Type Department Care Team (Late st Contact Info) Description 12/02/2021 Community Orders [facility] EpicCare Link [address] [place] [address] Wilbur Daley MD [address] [place] [address] [place] [address] Fever and chills (Primary Dx) Social History [...] Description 11/15/2025 3:45 PM EST Office Visit [facility] Family Medicine 52 [facility] [address] [place] [phone] Denny Camacho MD [address] [place] [address] documented as of this encounter Results * Due to [place] state law, this organization might not be sharing negative HIV tests. * COVID-19, Flu A/B & RSV RNA PCR, Symptomatic (12/02/2021 3:12 PM EST) SARS CoV 2 RNA, RT PCR Not Detected Not Detected [email or web address] 12/03/2021 5:56 AM EST [facility] CLINICAL PATHOLOGY LABORATORY Comment:A Not Detected (Nega [...] RNA, RT PCR Not Detected Not Detected [facility] 12/03/2021 5:56 AM EST [facility] CL[facility]ICAL PATHOLOGY LABORATORY Comment:Negative results do not preclude infection and should not be used as the sole basis for diagnosis, treatment or other patient management decisions. Negative results must be combined with clinical observations, patient history, and/or epidemiological information. RSV RNA, RT PCR Not Detected Not Detected [email or web address] 12/03/2021 5:56 AM EST [facility] CL[facility]ICAL PATHOLOGY LABORATORY Comment:Negative results do not preclude infection and should not be used as the sole basis for diagnosis, treatment or other patient management decisions. Negative results must be combined with clinical observations, patient history, and/or epidemiological information. Saliva Mouth region structure / Unknown Non-Blood Collection / Unknown 12/02/2021 3:12 PM EST 12/02/2021 5:03 PM EST [facility] [employer] [facility] CLINICAL PATHOLOGY LABORATORY - 12/03/2021 5:56 AM EST These tests were developed, validated, and their performance characteristics determined by the Molecular Virology Laboratory at [facility] under CLIA [id number]. They have not been cleared or approved by the U.S. Food and Drug Administration (FDA). FDA Policy for Diagnostic Tests for Coronavirus Disease-2019 during the Public Health Emergency issued January 16, 2020, is followed. us Wilbur Daley MD LAB BODY FLUIDS AND STOOLS OR DERABLES Final Result [facility] [address] [place] [address], documented in this encounter Visit Diagnoses Diagnosis [...] documented as of this encounter Care Teams Atg Java Developer Relationship Specialty Start Date End Date Denny Camacho MD [address] [place] [address] PCP - General Family Medicine 02/14/25 documented as of this encounter
--- OUTSIDE RECORDS SUMMARY | 2025-11-01 14:50 | XMS_ITS | Clinical Summary ---
Author Organization [facility] Address [address] [place] [address] Care Team Providers Care Pinking Machine Operator Name Role Phone Denny Camacho MD Primary Care Provider [phone] Allergies Active Allergy Reactions Criticality Noted Date [...] Department Care Team Description 10/04/2025 Orders Only [address] [place] [address] [facility] CCMA Closed nondisplaced [...] 03/14/2023 7:30 PM EDT Plan of Treatment Upcoming Encounters Date Type Department Care Team (Late st Contact Info) Description 11/15/2025 3:45 PM EST Office Visit [facility] 52 [facility] [address] [place] [address] Denny Camacho MD [address] [place] [address] Health Maintenance Due Date Last Done Comments [...] Multidrug resistant organisms MRSA 08/02/2017 08/02/2017 Insurance [facility] HMO/POS Member Subscriber Plan / Payer (Ef fective 2016-Present) Name:Neil Kaminski Relation to Subscriber:Child Name:YamilexTi adams Date of :1968 (Home) Address: [address] [place] [address] Payer ID:[id number] (NAIC) Type:Not on file Address: [id number] [facility] HMO/POS Care Teams Pinking Machine Operator Relationship Specialty Start Date End Date Denny Camacho MD [address] [place] [address] PCP - General Family Medicine 02/14/25
--- OUTSIDE RECORDS SUMMARY | 2025-11-01 14:50 | XMS_ITS | Encounter Summary ---
Author Organization [facility] Address [address] [place] [address] Care Team Providers Care Plug Overwrap Machine Tender Name Role Phone Denny Camacho MD Primary Care Provider [phone] Encounter Details Date Type Department Care Team (Late st Contact Info) Description 09/23/2019 Community Orders [facility] EpicCare Link [address] [place] [address] Wilbur Daley MD [address] [place] [address] [place]-Schlatter's disease of both knees (Primary Dx) Social [...] 11/15/2025 3:45 PM EST Office Visit [facility] Medicine [address] [address] Denny Camacho MD [address] [place] [address] documented as of this encounter Visit Diagnoses Diagnosis [place]-Schlatter's disease of both knees- Primary documented in [...] documented as of this encounter Care Teams Plug Overwrap Machine Tender Relationship Specialty Start Date End Date Denny Camacho MD [address] [place] [address] PCP - General Family Medicine 02/14/25 documented as of this encounter
--- OUTSIDE RECORDS SUMMARY | 2025-11-01 14:50 | XMS_ITS | Encounter Summary ---
Author Organization [facility] Address [address] [place] [address] Care Team Providers Care Coke Worker Name Role Phone Denny Camacho MD Primary Care Provider [phone] Encounter Details Date Type Department Care Team (Late st Contact Info) Description 01/28/2021 Community Orders [facility] EpicCare Link [address] [place] [address] Wilbur Daley MD [address] [place] [address] [place] [address] Exposure to SARS virus (Primary Dx) Social [...] Description 11/15/2025 3:45 PM EST Office Visit [facility] Medicine 52 [facility] [address] [place] [phone] Denny Camacho MD [address] [place] [address] documented as of this encounter Results * Due to [place] state law, this organization might not be sharing negative HIV tests. * COVID-19 PCR, BUILDINGS [employer] GROUNDS SUPERINTENDENT/OP/[facility]iva (01/31/2021 8:44 AM EDT) SARS CoV 2 RNA, RT PCR Not Detected Not Detected [facility] 01/31/2021 4:22 PM EDT [facility] CLINICAL PATHOLOGY LABORATORY Comment:A Not Detected (Nega [...] AM EDT 01/31/2021 9:28 AM EDT Narrative [facility] CLINICAL PATHOLOGY LABORATORY - 01/31/2021 4:22 PM EDT These tests were developed, validated, and their performance characteristics determined by the Molecular Virology Laboratory at [facility] under CLIA [id number]. They have not been cleared or approved by the U.S. Food and Drug Administration (FDA). FDA Policy for Diagnostic Tests for Coronavirus Disease-2019 during the Public Health Emergency issued January 16, 2020, is followed. us Wilbur Daley MD LAB BODY FLUIDS AND STOOLS OR DERABLES Final Result [facility] CLINICAL PATHOLOGY LABORATORY [address] [place] [address], documented in this encounter Visit Diagnoses Diagnosis [...] documented as of this encounter Care Teams Coke Worker Relationship Specialty Start Date End Date Denny Camacho MD [address] [place] [address] PCP - General Family Medicine 02/14/25 documented as of this encounter
--- OUTSIDE RECORDS SUMMARY | 2025-11-01 14:50 | XMS_ITS | Clinical Summary ---
Author Organization [facility] Address [address] [place] [address] Care Team Providers Care Rotary Drum Dyer Name Role Phone Juan Luis Daley MD Primary Care Provider [phone] Allergies Active Allergy Reactions Criticality Noted Date [...] age to complete this topic Insurance MEDICAID [facility] FEE FOR SERVICE HMO Care Teams Rotary Drum Dyer Relationship Specialty Start Date End Date Juan Luis Daley MD JUAN LUIS DALEY, [address] [address] PCP - General Pediatrics 02/11/22
== END 2025-11-01 14:00 | disposition home or self-care (01) ==
LOC: HO.HOS 13:25
DX: S62.312A Displaced fracture of base of third metacarpal bone, right hand, initial encounter for closed fracture (principal)
CPT/HCPCS: 99213